=== PATIENT | male | born 1945 | race Caucasian/White ===

== ENCOUNTER 2016-10-03 11:10 | Inpatient (IN) | payer MEDICARE, MEDICAID ==
[~2016-10-03] VITALS: Ht 172.7 cm; Wt 131.8 kg
[~2016-10-03 11:10] MED LIST: ACET-929; AMIODARONE; ATIVAN; CARDIZEM; CYCL5TAB89; ENAL-3 PO; FERR1TAB12; FLUT0.0531; GABA300C8 PO; GLIP-116 PO; IPRAAER5; LORA1TAB12 PO; NITR0.4S31; TIOTCAP; TIZA4TAB9 PO; TRAM50TA2 PO; ZOLP-158; ZOLP10TA6 PO; [UNRECOGNIZED DRUG - CODE] PO; [UNRECOGNIZED DRUG - REMARK]
[2016-10-03 12:20] LABS: Basophils # (auto) 0.1 uL; Basophils % (auto) 1.6 % (0.0-2.0); Eosinophils # (auto) 0.2 uL; Eosinophils % (auto) 1.9 % (0.0-7.0); Hemoglobin 14.6 g/dL (13.5-17.5); Lymphocytes # (auto) 1.9 uL; Lymphocytes % (auto) 21.4 % (10.0-50.0); Mean Corpuscular Hemoglobin 29.4 pg (28.0-32.0); Mean Corpuscular Hgb Conc. 32.6 g/dL (32.0-36.0); Mean Corpuscular Volume 90.3 fL (80.0-100.0); Mean Platelet Volume 9.6 fL (7.4-10.4); Monocytes # (auto) 0.8 uL; Monocytes % (auto) 8.8 % (0.0-12.0); Neutrophils % (auto) 66.3 % (37.0-80.0); Platelet Count (auto) 127 10^3/uL (140-450); Red Cell Distribution Width 13.4 % (11.6-16.0)
[2016-10-03 12:52] LABS: Albumin 3.4 g/dL (3.4-5.0); Bilirubin, Total 0.7 mg/dL (0.2-1.0); Calcium 9.5 mg/dL (8.5-10.1); Magnesium 2.2 mg/dL (1.6-2.6); Potassium 4.7 mmol/L (3.5-5.1)
[2016-10-03] MEDS ORDERED: ACETAMINOPHEN 325 MG TAB PO ONE (13:30)
[2016-10-03 14:27] LABS: Urine Bilirubin Negative (Negative); Urine Blood Negative /uL (Negative); Urine Color Yellow (Yellow); Urine Ketone Negative (Negative); Urine Nitrite Negative (Negative); Urine RBC 1 /hpf (0 - 3)
[2016-10-03 14:30] LABS: B-Type Natriuretic Peptide 23.7 pg/mL (0-100)
[2016-10-03 14:32] LABS: Urine Glucose 4+ mg/dL (Normal)
[2016-10-03 14:41] LABS: Temperature: 21.9 C (20.0-25.0)
[2016-10-03] MEDS ORDERED: cefTRIAXone 1GM/50ML D5W 50 ML IV ONE (15:00)
[2016-10-03] MEDS ORDERED: NITROGLYCERIN 0.4 MG SL TAB SL PRN (16:30)
[2016-10-03] MEDS ORDERED: DEXTROSE (50%) 50ML SYRG IV PRN (16:30)
[2016-10-03] MEDS ORDERED: ALBUTEROL SULF 2.5 MG/0.5ML(0.5%) NEB SOLN NEB PRN (16:30)
[2016-10-03] MEDS ORDERED: LORazepam 0.5 MG TAB PO PRN (16:30)
[2016-10-03] MEDS ORDERED: MORPHINE SULF INJ 2 MG/ML SYRINGE 1ML IV PRN (16:30)
[2016-10-03] MEDS ORDERED: HYDROcodone-ACET 5/325MG TAB PO PRN (16:30)
[2016-10-03] MEDS ORDERED: PROMETHAZINE HCL 25 MG/ML 1ML IV PRN (16:30)
[2016-10-03] MEDS ORDERED: ACETAMINOPHEN 500 MG TAB PO PRN (16:30)
[2016-10-03] MEDS ORDERED: LACTULOSE 20Gm/30ML SOLN PO PRN (16:30)
[2016-10-03] MEDS ORDERED: ENOXAPARIN SOD 40 MG/0.4 ML SYRINGE SC SCH (17:03)
[2016-10-03] MEDS: SODIUM CHLORIDE 0.9% 1,000 ML IV SCH (17:13)
[2016-10-03] MEDS: InsuLIN REG 1unit/0.01ml Soln (100units/ml) SC SCH ×2 (17:15→22:00)
[2016-10-03] MEDS: ACCU-CHEK COMFORT CURVE STRIP VI SCH ×2 (17:16→22:36)
[2016-10-03] MEDS: glipiZIDE 5 MG TAB PO SCH (17:16)
[2016-10-03 17:23] LABS: Temperature: 22.5 C (20.0-25.0)
[2016-10-03] MEDS: IPRATROPIUM BROM 0.5 MG/2.5ML INH SOL NEB SCH (18:00)
[2016-10-03] MEDS: ALBUTEROL SULF 2.5 MG/0.5ML(0.5%) NEB SOLN NEB SCH (18:00)
[2016-10-03 19:55] VITALS: BP 112/68
[2016-10-03 21:28] VITALS: BP 130/71
[2016-10-03 21:33] VITALS: BP 140/82
[2016-10-03] MEDS: GABAPENTIN 300 MG CAP PO SCH (22:25)
[2016-10-03] MEDS: ATORVASTATIN 20 MG TAB PO SCH (22:25)
[2016-10-03] MEDS: APIXABAN 5 MG TAB PO SCH (22:25)
[2016-10-03] MEDS: TEMAZEPAM 15 MG CAP PO PRN (23:21)
[2016-10-04] MEDS: MORPHINE SULF INJ 2 MG/ML SYRINGE 1ML IV PRN ×3 (00:11→20:20)
[2016-10-04] MEDS: SODIUM CHLORIDE 0.9% 1,000 ML IV SCH ×2 (04:34→16:16)
[2016-10-04 05:24] VITALS: BP 145/67
[2016-10-04 06:07] LABS: Cholesterol 105 mg/dL (<200); HDL Cholesterol 25 mg/dL (40-59); LDL Cholesterol 67 mg/dL (<100); Triglycerides 157 mg/dL (<150)
[2016-10-04] MEDS: glipiZIDE 5 MG TAB PO SCH ×2 (06:12→17:43)
[2016-10-04] MEDS: ACCU-CHEK COMFORT CURVE STRIP VI SCH ×4 (06:25→22:00)
[2016-10-04] MEDS: InsuLIN REG 1unit/0.01ml Soln (100units/ml) SC SCH ×4 (06:27→21:38)
[2016-10-04 08:42] VITALS: BP 136/87
[2016-10-04] MEDS ORDERED: cefTRIAXone 1GM/50ML D5W 50 ML IV SCH (09:00)
[2016-10-04] MEDS: ASPirin 81 mg TAB PO SCH (09:37)
[2016-10-04] MEDS: GABAPENTIN 300 MG CAP PO SCH ×2 (09:37→21:29)
[2016-10-04] MEDS: APIXABAN 5 MG TAB PO SCH ×2 (09:37→23:12)
[2016-10-04] MEDS: ENALAPRIL MALEATE 10 MG TAB PO SCH (09:38)
[2016-10-04] MEDS ORDERED: NITROFURANTOIN (MONO) 100 mg CAP PO ONE (10:45)
[2016-10-04] MEDS: IPRATROPIUM BROM 0.5 MG/2.5ML INH SOL NEB SCH ×3 (12:00→19:45)
[2016-10-04] MEDS: ALBUTEROL SULF 2.5 MG/0.5ML(0.5%) NEB SOLN NEB SCH ×3 (12:00→19:45)
[2016-10-04 13:00] VITALS: BP 131/77
[2016-10-04 16:54] VITALS: BP 131/81
[2016-10-04] MEDS: NITROFURANTOIN (MONO) 100 mg CAP PO SCH (21:30)
[2016-10-04] MEDS: ATORVASTATIN 20 MG TAB PO SCH (21:30)
[2016-10-04] MEDS: TEMAZEPAM 15 MG CAP PO PRN (21:42)
[2016-10-04 22:21] VITALS: BP 149/71
[2016-10-05] MEDS: ALBUTEROL SULF 2.5 MG/0.5ML(0.5%) NEB SOLN NEB SCH
[2016-10-05] MEDS: IPRATROPIUM BROM 0.5 MG/2.5ML INH SOL NEB SCH
[2016-10-05 05:12] VITALS: BP 138/67
[2016-10-05] MEDS: glipiZIDE 5 MG TAB PO SCH (06:38)
[2016-10-05] MEDS: ACCU-CHEK COMFORT CURVE STRIP VI SCH ×2 (06:40→11:30)
[2016-10-05] MEDS: InsuLIN REG 1unit/0.01ml Soln (100units/ml) SC SCH ×2 (06:47→11:30)
[2016-10-05] MEDS: SODIUM CHLORIDE 0.9% 1,000 ML IV SCH (06:51)
[2016-10-05 07:49] VITALS: BP 134/67
[2016-10-05] MEDS: APIXABAN 5 MG TAB PO SCH (10:19)
[2016-10-05] MEDS: GABAPENTIN 300 MG CAP PO SCH (10:23)
[2016-10-05] MEDS: ASPirin 81 mg TAB PO SCH (10:23)
[2016-10-05] MEDS: NITROFURANTOIN (MONO) 100 mg CAP PO SCH (10:23)
[2016-10-05] MEDS: ENALAPRIL MALEATE 10 MG TAB PO SCH (10:24)
[2016-10-05 11:57] VITALS: BP 122/70
== END 2016-10-05 17:00 | disposition home or self-care (01) | DRG 637 ==
LOC: EDUNIT# 11:10 → ER 11:15 → TELE 11:16 → TELE-EAST 19:50
PROVIDERS: ADMIT Internal Medicine; ATTEND Internal Medicine
DX: E11.65 Type 2 diabetes mellitus with hyperglycemia (principal); I63.9 Cerebral infarction, unspecified; N39.0 Urinary tract infection, site not specified; I69.351 Hemiplegia and hemiparesis following cerebral infarction affecting right dominant side; E78.5 Hyperlipidemia, unspecified; I48.91 Unspecified atrial fibrillation; J44.9 Chronic obstructive pulmonary disease, unspecified; M19.90 Unspecified osteoarthritis, unspecified site; I25.10 Atherosclerotic heart disease of native coronary artery without angina pectoris; D64.9 Anemia, unspecified; G47.30 Sleep apnea, unspecified; I50.9 Heart failure, unspecified; M54.5 Low back pain; G89.29 Other chronic pain; E66.01 Morbid (severe) obesity due to excess calories; R26.9 Unspecified abnormalities of gait and mobility; B95.2 Enterococcus as the cause of diseases classified elsewhere; Z23 Encounter for immunization; Z80.0 Family history of malignant neoplasm of digestive organs; Z82.49 Family history of ischemic heart disease and other diseases of the circulatory system; Z85.038 Personal history of other malignant neoplasm of large intestine; Z87.891 Personal history of nicotine dependence; Z90.89 Acquired absence of other organs; Z88.1 Allergy status to other antibiotic agents; Z79.82 Long term (current) use of aspirin
CPT/HCPCS: 36415; 70450; 71010; 80053; 80061; 81001; 82550; 82607; 82746; 82962; 83036; 83735; 83880; 84443; 84484; 85025; 85652; 87081; 87086; 87088; 87186; 93005; 93886; 96365; 96372; G0434; J0696; J1815

== ENCOUNTER 2017-12-14 18:52 | Inpatient (IN) | payer MEDICARE, MEDICAID ==
[~2017-12-14] VITALS: Ht 172.7 cm; Wt 140.6 kg
[~2017-12-14 18:52] MED LIST changes: +ACE3T PO; -ACET-929; -AMIODARONE; +APIX5TAB PO; -ATIVAN; +ATOR20TA PO; -CARDIZEM; +FAMO-12 PO; -FERR1TAB12; -FLUT0.0531; +GABA-339 PO; -GABA300C8 PO; -IPRAAER5; +MULT-569 PO; -NITR0.4S31; +PHE100C PO; +SPIR25TA89 PO; -TRAM50TA2 PO; -ZOLP10TA6 PO; -[UNRECOGNIZED DRUG - CODE] PO
[2017-12-14 19:49] LABS: Basophils # (auto) 0 uL; Basophils % (auto) 0.6 % (0.0-2.0); Eosinophils # (auto) 0.2 uL; Eosinophils % (auto) 2.2 % (0.0-7.0); Hematocrit 43.6 % (41.0-53.0); Hemoglobin 14.9 g/dL (13.5-17.5); Lymphocytes # (auto) 1.7 uL; Mean Corpuscular Hemoglobin 30.4 pg (28.0-32.0); Mean Corpuscular Hgb Conc. 34.1 g/dL (32.0-36.0); Mean Corpuscular Volume 88.9 fL (80.0-100.0); Monocytes # (auto) 0.8 uL; Monocytes % (auto) 8.8 % (0.0-12.0); Neutrophils % (auto) 68.4 % (37.0-80.0); Nucleated Red Blood Cells % 0.1 %; Platelet Count (auto) 108 10^3/uL (140-450); Red Blood Cells 4.91 10^6/uL (4.5-5.90); Red Cell Distribution Width 14.5 % (11.8-14.3); White Blood Cell 8.7 10^3/uL (4.4-10.8)
[2017-12-14 20:11] LABS: Albumin 3.5 g/dL (3.4-5.0); BUN/Creatinine Ratio 11.6; Bilirubin, Total 0.4 mg/dL (0.2-1.0); Calcium 8.6 mg/dL (8.5-10.1); Potassium 4.1 mmol/L (3.5-5.1); Total Protein 7.1 g/dL (6.4-8.2)
[2017-12-14 23:45] LABS: INR 1.1 (0.9-1.15); Partial Thromboplastin Time 27.5 sec (22.64-33.71)
[2017-12-15] MEDS ORDERED: HYDROcodone-ACET 10/325MG TAB PO ONE (02:30)
[2017-12-15] MEDS ORDERED: MORPHINE SULFATE 4 MG/ML SYR/VIAL IV ONE (02:45)
[2017-12-15] MEDS ORDERED: ONDANSETRON HCL 4 MG/2 ML VIAL IV ONE (02:45)
[2017-12-15 03:00] LABS: Urine Bacteria FEW /hpf (None Seen); Urine Blood Negative /uL (Negative); Urine Mucus FEW (None Seen); Urine Specific Gravity 1.024 (1.001-1.035); Urine WBC 4 /hpf (0 - 3)
[2017-12-15] MEDS ORDERED: ACETAMINOPHEN 500 MG TAB PO PRN (04:30)
[2017-12-15] MEDS ORDERED: HYDROcodone-ACET 5/325MG TAB PO PRN (04:30)
[2017-12-15] MEDS ORDERED: ONDANSETRON HCL 4 MG/2 ML VIAL IV PRN (04:30)
[2017-12-15] MEDS ORDERED: LORazepam 0.5 MG TAB PO PRN (04:30)
[2017-12-15] MEDS ORDERED: DEXTROSE (50%) 50ML SYRG IV PRN (04:30)
[2017-12-15 05:52] VITALS: BP 134/90
[2017-12-15] MEDS: ACCU-CHEK COMFORT CURVE STRIP VI SCH ×5 (07:09→23:53)
[2017-12-15] MEDS: InsuLIN REG 1unit/0.01ml Soln (100units/ml) SC SCH ×5 (07:10→23:58)
[2017-12-15] MEDS: MORPHINE SULFATE 4 MG/ML SYR/VIAL IV PRN (08:59)
[2017-12-15 09:00] VITALS: BP 119/88
[2017-12-15 09:09] LABS: Basophils # (auto) 0 uL; Basophils % (auto) 0.6 % (0.0-2.0); Eosinophils # (auto) 0.2 uL; Eosinophils % (auto) 2.6 % (0.0-7.0); Hematocrit 42.1 % (41.0-53.0); Lymphocytes # (auto) 1.7 uL; Lymphocytes % (auto) 24.7 % (10.0-50.0); Mean Corpuscular Hemoglobin 29.8 pg (28.0-32.0); Mean Corpuscular Hgb Conc. 33.3 g/dL (32.0-36.0); Mean Corpuscular Volume 89.5 fL (80.0-100.0); Monocytes # (auto) 0.7 uL; Monocytes % (auto) 9.5 % (0.0-12.0); Neutrophils # (auto) 4.4 uL; Neutrophils % (auto) 62.6 % (37.0-80.0); Nucleated Red Blood Cells % 0.2 %; Platelet Count (auto) 94 10^3/uL (140-450); Red Cell Distribution Width 14.2 % (11.8-14.3)
[2017-12-15 09:23] LABS: BUN/Creatinine Ratio 12.5; Calcium 8.4 mg/dL (8.5-10.1); Potassium 4.2 mmol/L (3.5-5.1)
[2017-12-15] MEDS ORDERED: ENOXAPARIN SOD 40 MG/0.4 ML SYRINGE SC SCH (10:00)
[2017-12-15] MEDS: DILTIAZEM HCL 120MG ER CAP PO SCH (10:32)
[2017-12-15] MEDS ORDERED: ALBUTEROL SULF 2.5 MG/0.5ML(0.5%) NEB SOLN NEB PRN (11:45)
[2017-12-15] MEDS ORDERED: PHENYTOIN SODIUM 100 MG CAP PO ONE (12:15)
[2017-12-15] MEDS ORDERED: predniSONE 20 MG TAB PO ONE (12:15)
[2017-12-15] MEDS ORDERED: SPIRONOLACTONE 25 MG TAB PO ONE (12:15)
[2017-12-15] MEDS ORDERED: ENALAPRIL MALEATE 10 MG TAB PO ONE (12:15)
[2017-12-15] MEDS ORDERED: GABAPENTIN 300 MG CAP PO ONE (12:15)
[2017-12-15 13:00] VITALS: BP 146/73
[2017-12-15] MEDS ORDERED: ARTIFICIAL TEAR OPTH(EYE) OINT 3.5GM RIGHTEYE SCH (14:00)
[2017-12-15] MEDS: ARTIFICIAL TEAR OPTH(EYE) OINT 3.5GM RIGHTEYE SCH ×3 (14:55→21:19)
[2017-12-15] MEDS: ACYCLOVIR 400 MG TAB PO SCH ×3 (14:56→21:13)
[2017-12-15 17:06] VITALS: BP 143/73
[2017-12-15] MEDS: GABAPENTIN 300 MG CAP PO SCH (21:13)
[2017-12-15 22:00] VITALS: BP 133/54
[2017-12-15] MEDS ORDERED: ATORVASTATIN 20 MG TAB PO SCH (22:00)
[2017-12-15] MEDS ORDERED: InsuLIN REG 1unit/0.01ml Soln (100units/ml) SC SCH (22:00)
[2017-12-16 01:32] VITALS: BP 133/54
[2017-12-16] MEDS: ARTIFICIAL TEAR OPTH(EYE) OINT 3.5GM RIGHTEYE SCH ×3 (02:07→09:56)
[2017-12-16 05:00] VITALS: BP 130/83
[2017-12-16] MEDS: ACYCLOVIR 400 MG TAB PO SCH ×2 (05:25→09:54)
[2017-12-16] MEDS: ACCU-CHEK COMFORT CURVE STRIP VI SCH ×2 (05:25→12:00)
[2017-12-16] MEDS: InsuLIN REG 1unit/0.01ml Soln (100units/ml) SC SCH ×2 (05:42→12:00)
[2017-12-16 08:38] VITALS: BP 101/65
[2017-12-16] MEDS: MORPHINE SULFATE 4 MG/ML SYR/VIAL IV PRN (08:38)
[2017-12-16] MEDS: GABAPENTIN 300 MG CAP PO SCH (09:55)
[2017-12-16] MEDS: DILTIAZEM HCL 120MG ER CAP PO SCH (09:55)
[2017-12-16] MEDS ORDERED: PHENYTOIN SODIUM 100 MG CAP PO SCH (10:00)
[2017-12-16] MEDS ORDERED: predniSONE 20 MG TAB PO SCH (10:00)
[2017-12-16] MEDS ORDERED: SPIRONOLACTONE 25 MG TAB PO SCH (10:00)
[2017-12-16] MEDS ORDERED: ENALAPRIL MALEATE 10 MG TAB PO SCH (10:00)
== END 2017-12-16 14:20 | disposition home or self-care (01) | DRG 74 ==
LOC: EDBD 18:52 → ER 18:52 → TELE 18:53 → TELE-EAST 12-15 05:53
PROVIDERS: ADMIT Nurse Practitioner Family; ATTEND Family Medicine
DX: G51.0 Bell's palsy (principal); E11.40 Type 2 diabetes mellitus with diabetic neuropathy, unspecified; I11.0 Hypertensive heart disease with heart failure; I48.91 Unspecified atrial fibrillation; I50.9 Heart failure, unspecified; J44.1 Chronic obstructive pulmonary disease with (acute) exacerbation; I69.351 Hemiplegia and hemiparesis following cerebral infarction affecting right dominant side; D64.9 Anemia, unspecified; E78.00 Pure hypercholesterolemia, unspecified; I25.10 Atherosclerotic heart disease of native coronary artery without angina pectoris; F41.9 Anxiety disorder, unspecified; M19.90 Unspecified osteoarthritis, unspecified site; Z79.899 Other long term (current) drug therapy; Z79.01 Long term (current) use of anticoagulants; Z79.4 Long term (current) use of insulin; Z82.49 Family history of ischemic heart disease and other diseases of the circulatory system; Z87.891 Personal history of nicotine dependence; Z88.1 Allergy status to other antibiotic agents
CPT/HCPCS: 36415; 70450; 71045; 80048; 80053; 80061; 81001; 82962; 83036; 83880; 84484; 85025; 85379; 85610; 85730; 87081; 92610; 93005; 93886; 96372; 96374; 96375; J1815; J2405

== ENCOUNTER 2019-09-12 15:58 | Emergency (ER) | payer MEDICARE, MEDICAID ==
[~2019-09-12] VITALS: Ht 172.7 cm; Wt 136.1 kg
[~2019-09-12 15:58] MED LIST changes: -ENAL-3 PO; +ENAL10TA2 PO; -GLIP-116 PO; +GLIP10TA9 PO; +SPIR25TA8 PO; -SPIR25TA89 PO
[2019-09-12 16:09] VITALS: BP 156/97
== END 2019-09-12 18:15 | disposition home or self-care (01) ==
LOC: EDBD 15:58 → ER 16:05
DX: S82.001A Unspecified fracture of right patella, initial encounter for closed fracture (principal); M17.12 Unilateral primary osteoarthritis, left knee; E66.01 Morbid (severe) obesity due to excess calories; J44.9 Chronic obstructive pulmonary disease, unspecified; E11.9 Type 2 diabetes mellitus without complications; K21.9 Gastro-esophageal reflux disease without esophagitis; E78.5 Hyperlipidemia, unspecified; I10 Essential (primary) hypertension; Z87.891 Personal history of nicotine dependence; Z88.1 Allergy status to other antibiotic agents; Z79.899 Other long term (current) drug therapy; Z68.42 Body mass index [BMI] 45.0-49.9, adult; Z99.3 Dependence on wheelchair; W07.XXXA Fall from chair, initial encounter; Y93.89 Activity, other specified; Y92.89 Other specified places as the place of occurrence of the external cause; Y99.8 Other external cause status
CPT/HCPCS: 29505; 73562

== ENCOUNTER 2020-12-07 14:11 | Inpatient (IN) | payer MEDICARE, MEDICAID ==
[~2020-12-07] VITALS: Ht 172.7 cm; Wt 112.3 kg
[~2020-12-07 14:11] MED LIST changes: +ENAL10TA13 PO; -ENAL10TA2 PO; -LORA1TAB12 PO; +LORA1TAB23 PO; -MULT-569 PO; +MULT1TAB28 PO; -ZOLP-158; +ZOLP5TAB
[2020-12-07 15:02] LABS: Basophils # (auto) 0 10 ^3/uL (0-0.2); Basophils % (auto) 0.6 % (0.0-2.0); Eosinophils # (auto) 0.1 10 ^3/uL (0-0.8); Eosinophils % (auto) 1.9 % (0.0-7.0); Hematocrit 40.9 % (41.0-53.0); Hemoglobin 13.8 g/dL (13.5-17.5); Lymphocytes # (auto) 1.9 10 ^3/uL (0.4-5.4); Lymphocytes % (auto) 27.7 % (10.0-50.0); Mean Corpuscular Hgb Conc. 33.8 g/dL (32.0-36.0); Mean Corpuscular Volume 88.7 fL (80.0-100.0); Monocytes # (auto) 0.5 10 ^3/uL (0-1.3); Neutrophils # (auto) 4.1 10 ^3/uL (1.6-8.6); Neutrophils % (auto) 61.8 % (37.0-80.0); Nucleated Red Blood Cells % 0.1 %; Platelet Count (auto) 101 10^3/uL (140-450); Red Blood Cells 4.61 10^6/uL (4.5-5.90); Red Cell Distribution Width 14.3 % (11.8-14.3); White Blood Cell 6.7 10^3/uL (4.4-10.8)
[2020-12-07 15:10] LABS: INR 1.21 (0.9-1.15)
[2020-12-07 15:11] LABS: Albumin 3.2 g/dL (3.4-5.0); BUN/Creatinine Ratio 10.9; Calcium 8.5 mg/dL (8.5-10.1); Magnesium 2.1 mg/dL (1.6-2.6); Potassium 3.9 mmol/L (3.5-5.1)
[2020-12-07 15:16] LABS: Bilirubin, Total 0.8 mg/dL (0.2-1.0); Total Protein 6.8 g/dL (6.4-8.2)
[2020-12-07] MEDS ORDERED: methylPREDNISolone SOD SUCC 125 MG/2 ML VL IV ONE (15:45)
[2020-12-07] MEDS ORDERED: AZITHROMYCIN 500MG/ 250ML 250 ML IV ONE (15:45)
[2020-12-07] MEDS ORDERED: IPRATROPIUM BROM 0.5 MG/2.5ML INH SOL HHN ONE (15:45)
[2020-12-07] MEDS ORDERED: ALBUTEROL SULF 2.5 MG/0.5ML(0.5%) NEB SOLN HHN ONE (15:45)
[2020-12-07] MEDS ORDERED: ONDANSETRON HCL 4 MG/2 ML VIAL IV PRN (18:45)
[2020-12-07] MEDS ORDERED: ACETAMINOPHEN 500 MG TAB PO PRN (18:45)
[2020-12-07] MEDS ORDERED: MORPHINE SULF INJ 2 MG/ML SYRINGE 1ML IV PRN ×2 (18:45)
[2020-12-07] MEDS ORDERED: NITROGLYCERIN 0.4 MG SL TAB SL PRN (18:45)
[2020-12-07 18:59] LABS: Urine Bacteria MANY /hpf (None Seen); Urine Blood 1+ /uL (Negative); Urine Mucus FEW (None Seen); Urine Specific Gravity 1.019 (1.001-1.035); Urine WBC 242 /hpf (0 - 3); Urine WBC Clumps PRESENT /hpf (None Seen)
[2020-12-07] MEDS ORDERED: FUROSEMIDE 20 MG/2 ML VIAL IV ONE (19:00)
[2020-12-07] MEDS ORDERED: DEXTROSE (50%) 50ML SYRG IV PRN (19:00)
[2020-12-07 19:02] VITALS: BP 159/73
[2020-12-07] MEDS: DOXYCYCLINE 100MG/250ML 250 ML IV SCH (19:59)
[2020-12-07] MEDS: APIXABAN 5 MG TAB PO SCH (21:23)
[2020-12-07] MEDS: GABAPENTIN 400 MG CAP PO SCH (21:23)
[2020-12-07] MEDS: ACCU-CHEK COMFORT CURVE STRIP VI SCH (21:24)
[2020-12-07 21:30] VITALS: BP 143/86
[2020-12-07] MEDS: InsuLIN REG 1unit/0.01ml Soln (100units/ml) SC SCH (21:31)
[2020-12-07] MEDS: HYDROcodone-ACET 5/325MG TAB PO PRN (21:50)
[2020-12-07 22:00] VITALS: BP 143/86
[2020-12-08] VITALS (9 sets, daily range): BP systolic 110–152; BP diastolic 63–97
[2020-12-08] MEDS ORDERED: INFLUENZA QUAD 2020-2021 0.5 ML SYRG IM ONE (02:00)
[2020-12-08] MEDS ORDERED: PNEUMOCOCCAL VACC POLYS 25 MCG/0.5 ML VIAL IM ONE (02:00)
[2020-12-08] MEDS: InsuLIN REG 1unit/0.01ml Soln (100units/ml) SC SCH ×4 (06:36→21:39)
[2020-12-08] MEDS: DOXYCYCLINE 100MG/250ML 250 ML IV SCH ×2 (06:38→17:59)
[2020-12-08] MEDS: IPRATROPIUM BROM 0.5 MG/2.5ML INH SOL NEB SCH ×3 (07:32→18:34)
[2020-12-08] MEDS: ALBUTEROL SULF 2.5 MG/0.5ML(0.5%) NEB SOLN NEB SCH ×3 (07:33→18:34)
[2020-12-08 08:21] LABS: Basophils # (auto) 0 10 ^3/uL (0-0.2); Basophils % (auto) 0.2 % (0.0-2.0); Eosinophils # (auto) 0 10 ^3/uL (0-0.8); Hematocrit 41.1 % (41.0-53.0); Hemoglobin 14.4 g/dL (13.5-17.5); Lymphocytes # (auto) 0.8 10 ^3/uL (0.4-5.4); Lymphocytes % (auto) 8.2 % (10.0-50.0); Mean Corpuscular Hemoglobin 30.8 pg (28.0-32.0); Mean Corpuscular Volume 87.8 fL (80.0-100.0); Monocytes # (auto) 0.2 10 ^3/uL (0-1.3); Monocytes % (auto) 2.4 % (0.0-12.0); Neutrophils # (auto) 8.7 10 ^3/uL (1.6-8.6); Neutrophils % (auto) 89.2 % (37.0-80.0); Nucleated Red Blood Cells % 0.1 %; Platelet Count (auto) 101 10^3/uL (140-450); Red Blood Cells 4.68 10^6/uL (4.5-5.90); Red Cell Distribution Width 14.2 % (11.8-14.3); White Blood Cell 9.8 10^3/uL (4.4-10.8)
[2020-12-08 08:37] LABS: BUN/Creatinine Ratio 15.3; Calcium 8.8 mg/dL (8.5-10.1); Potassium 3.9 mmol/L (3.5-5.1)
[2020-12-08] MEDS: ATORVASTATIN 20 MG TAB PO SCH (09:02)
[2020-12-08] MEDS: dilTIAZem HCL 180MG ER CAP PO SCH (09:05)
[2020-12-08] MEDS: HYDROcodone-ACET 5/325MG TAB PO PRN ×2 (09:06→22:39)
[2020-12-08] MEDS: FUROSEMIDE 20 MG/2 ML VIAL IV SCH (09:07)
[2020-12-08] MEDS: GABAPENTIN 400 MG CAP PO SCH ×2 (09:08→21:37)
[2020-12-08] MEDS: FAMOTIDINE 20 MG TAB PO SCH (09:08)
[2020-12-08] MEDS: APIXABAN 5 MG TAB PO SCH ×2 (09:08→21:37)
[2020-12-08] MEDS: ENALAPRIL MALEATE 10 MG TAB PO SCH (09:09)
[2020-12-08] MEDS: ACCU-CHEK COMFORT CURVE STRIP VI SCH ×4 (09:12→21:39)
[2020-12-08] MEDS ORDERED: FAMOTIDINE 20 MG TAB PO SCH (10:00)
[2020-12-08] MEDS: methylPREDNISolone SOD SUCC 40 MG/ML VL IV SCH ×2 (12:28→21:36)
[2020-12-08] MEDS ORDERED: GABA800T97 PO (18:28)
[2020-12-08] MEDS ORDERED: TIOTCAP IN (18:29)
[2020-12-08] MEDS ORDERED: DILT120T3 PO (18:39)
[2020-12-08] MEDS ORDERED: METH750T3 PO (18:39)
[2020-12-08] MEDS ORDERED: HYDR-4798 PO (18:39)
[2020-12-08] MEDS ORDERED: OMEP-260 PO (18:39)
[2020-12-08] MEDS ORDERED: BUSP7.5T8 PO (18:39)
[2020-12-08] MEDS ORDERED: INSU1INJ26 SC (18:51)
[2020-12-08] MEDS ORDERED: FLUT1SPR5 (18:51)
[2020-12-08] MEDS ORDERED: ALBU0.084 NEB (18:53)
[2020-12-08] MEDS ORDERED: ALBUAER3 IN (18:53)
[2020-12-08] MEDS ORDERED: SITA100T7 PO (18:54)
[2020-12-08] MEDS ORDERED: METOPROLOL TARTRATE 1MG/1ML-5ML VIAL IV ONE (19:00)
[2020-12-08] MEDS ORDERED: cefTRIAXone 1GM/50ML D5W 50 ML IV ONE (20:45)
[2020-12-08] MEDS: INSULIN LANTUS (GLARGINE) 1 /0.01ml (100units/ml) SC SCH (21:38)
[2020-12-08] MEDS: BUDESONIDE (INHALATION) 0.5 MG/2 ML NEB NEB SCH (22:34)
[2020-12-09] MEDS: ALBUTEROL SULF 2.5 MG/0.5ML(0.5%) NEB SOLN NEB SCH ×4 (01:36→18:39)
[2020-12-09] MEDS: IPRATROPIUM BROM 0.5 MG/2.5ML INH SOL NEB SCH ×4 (01:36→18:39)
[2020-12-09 04:59] VITALS: BP 144/88
[2020-12-09] MEDS: BUDESONIDE (INHALATION) 0.5 MG/2 ML NEB NEB SCH ×2 (06:15→22:15)
[2020-12-09] MEDS: ACCU-CHEK COMFORT CURVE STRIP VI SCH ×3 (06:18→17:33)
[2020-12-09] MEDS: DOXYCYCLINE 100MG/250ML 250 ML IV SCH ×2 (06:18→18:22)
[2020-12-09] MEDS: InsuLIN REG 1unit/0.01ml Soln (100units/ml) SC SCH ×3 (06:19→17:34)
[2020-12-09 09:00] VITALS: BP 141/81
[2020-12-09] MEDS ORDERED: cefTRIAXone 1GM/50ML D5W 50 ML IV SCH (09:00)
[2020-12-09] MEDS ORDERED: DEXTROSE (50%) 50ML SYRG IV PRN (09:30)
[2020-12-09] MEDS: ATORVASTATIN 20 MG TAB PO SCH (09:32)
[2020-12-09] MEDS: GABAPENTIN 400 MG CAP PO SCH ×2 (09:32→21:27)
[2020-12-09] MEDS: APIXABAN 5 MG TAB PO SCH ×2 (09:32→21:27)
[2020-12-09] MEDS: FAMOTIDINE 20 MG TAB PO SCH (09:32)
[2020-12-09] MEDS: ENALAPRIL MALEATE 10 MG TAB PO SCH (09:33)
[2020-12-09] MEDS: dilTIAZem HCL 180MG ER CAP PO SCH (09:34)
[2020-12-09] MEDS: methylPREDNISolone SOD SUCC 40 MG/ML VL IV SCH (09:34)
[2020-12-09] MEDS: FUROSEMIDE 20 MG/2 ML VIAL IV SCH (09:35)
[2020-12-09] MEDS: INSULIN LANTUS (GLARGINE) 1 /0.01ml (100units/ml) SC SCH ×2 (09:36→21:28)
[2020-12-09] MEDS: HYDROcodone-ACET 5/325MG TAB PO PRN ×2 (09:56→16:43)
[2020-12-09] MEDS ORDERED: predniSONE 20 MG TAB PO ONE (10:00)
[2020-12-09 12:49] VITALS: BP 131/73
[2020-12-09] MEDS: MEROPENEM 1GM IVPB 100 ML IV SCH ×2 (16:15→21:27)
[2020-12-09 17:00] VITALS: BP 121/61
[2020-12-09 20:00] VITALS: BP 156/89
[2020-12-09 21:59] VITALS: BP 107/59
[2020-12-10] MEDS: InsuLIN REG 1unit/0.01ml Soln (100units/ml) SC SCH ×4 (00:33→17:41)
[2020-12-10] MEDS: ACCU-CHEK COMFORT CURVE STRIP VI SCH ×4 (00:34→17:34)
[2020-12-10] MEDS: HYDROcodone-ACET 5/325MG TAB PO PRN ×2 (00:35→22:06)
[2020-12-10 04:59] VITALS: BP 138/74
[2020-12-10] MEDS: IPRATROPIUM BROM 0.5 MG/2.5ML INH SOL NEB SCH ×3 (05:47→18:56)
[2020-12-10] MEDS: ALBUTEROL SULF 2.5 MG/0.5ML(0.5%) NEB SOLN NEB SCH ×3 (05:48→18:56)
[2020-12-10] MEDS: BUDESONIDE (INHALATION) 0.5 MG/2 ML NEB NEB SCH ×2 (05:48→18:56)
[2020-12-10] MEDS: MEROPENEM 1GM IVPB 100 ML IV SCH ×3 (06:09→22:59)
[2020-12-10 09:00] VITALS: BP 151/82
[2020-12-10] MEDS: DOXYCYCLINE 100MG/250ML 250 ML IV SCH ×2 (09:34→22:03)
[2020-12-10] MEDS: predniSONE 20 MG TAB PO SCH (09:34)
[2020-12-10] MEDS: FUROSEMIDE 20 MG/2 ML VIAL IV SCH (09:34)
[2020-12-10] MEDS: GABAPENTIN 400 MG CAP PO SCH ×2 (09:35→22:05)
[2020-12-10] MEDS: FAMOTIDINE 20 MG TAB PO SCH (09:35)
[2020-12-10] MEDS: ATORVASTATIN 20 MG TAB PO SCH (09:35)
[2020-12-10] MEDS: dilTIAZem HCL 180MG ER CAP PO SCH (09:35)
[2020-12-10] MEDS: APIXABAN 5 MG TAB PO SCH ×2 (09:35→22:06)
[2020-12-10] MEDS: ENALAPRIL MALEATE 10 MG TAB PO SCH (09:36)
[2020-12-10] MEDS: INSULIN LANTUS (GLARGINE) 1 /0.01ml (100units/ml) SC SCH ×2 (09:47→22:16)
[2020-12-10 13:00] VITALS: BP 142/77
[2020-12-10 17:00] VITALS: BP 107/67
[2020-12-10 19:34] VITALS: BP 107/67
[2020-12-10 21:47] VITALS: BP 118/68
[2020-12-11] MEDS: InsuLIN REG 1unit/0.01ml Soln (100units/ml) SC SCH ×5 (00:07→23:47)
[2020-12-11] MEDS: ACCU-CHEK COMFORT CURVE STRIP VI SCH ×5 (00:07→23:47)
[2020-12-11 04:52] VITALS: BP 103/58
[2020-12-11] MEDS: MEROPENEM 1GM IVPB 100 ML IV SCH ×3 (05:29→21:49)
[2020-12-11] MEDS: IPRATROPIUM BROM 0.5 MG/2.5ML INH SOL NEB SCH ×4 (06:00→18:58)
[2020-12-11] MEDS: ALBUTEROL SULF 2.5 MG/0.5ML(0.5%) NEB SOLN NEB SCH ×4 (06:00→18:59)
[2020-12-11] MEDS: BUDESONIDE (INHALATION) 0.5 MG/2 ML NEB NEB SCH ×2 (06:36→18:59)
[2020-12-11 06:44] LABS: Basophils # (auto) 0 10 ^3/uL (0-0.2); Basophils % (auto) 0.3 % (0.0-2.0); Eosinophils # (auto) 0 10 ^3/uL (0-0.8); Hematocrit 43.8 % (41.0-53.0); Hemoglobin 14.9 g/dL (13.5-17.5); Lymphocytes # (auto) 1.8 10 ^3/uL (0.4-5.4); Lymphocytes % (auto) 13.6 % (10.0-50.0); Mean Corpuscular Hemoglobin 30.2 pg (28.0-32.0); Mean Corpuscular Volume 88.8 fL (80.0-100.0); Monocytes # (auto) 1.1 10 ^3/uL (0-1.3); Monocytes % (auto) 8.6 % (0.0-12.0); Neutrophils # (auto) 10.3 10 ^3/uL (1.6-8.6); Neutrophils % (auto) 77.5 % (37.0-80.0); Platelet Count (auto) 118 10^3/uL (140-450); Red Blood Cells 4.93 10^6/uL (4.5-5.90); Red Cell Distribution Width 14.6 % (11.8-14.3); White Blood Cell 13.3 10^3/uL (4.4-10.8)
[2020-12-11 07:55] LABS: BUN/Creatinine Ratio 29.9; Calcium 8.6 mg/dL (8.5-10.1); Potassium 3.8 mmol/L (3.5-5.1)
[2020-12-11 07:57] LABS: Bilirubin, Total 0.7 mg/dL (0.2-1.0); Total Protein 6.3 g/dL (6.4-8.2)
[2020-12-11 09:00] VITALS: BP 141/78
[2020-12-11] MEDS: ATORVASTATIN 20 MG TAB PO SCH (09:19)
[2020-12-11] MEDS: predniSONE 20 MG TAB PO SCH (09:20)
[2020-12-11] MEDS: FAMOTIDINE 20 MG TAB PO SCH (09:20)
[2020-12-11] MEDS: ENALAPRIL MALEATE 10 MG TAB PO SCH (09:21)
[2020-12-11] MEDS: DOXYCYCLINE 100MG/250ML 250 ML IV SCH (09:24)
[2020-12-11] MEDS: FUROSEMIDE 20 MG/2 ML VIAL IV SCH (09:24)
[2020-12-11] MEDS: GABAPENTIN 400 MG CAP PO SCH ×2 (09:25→21:38)
[2020-12-11] MEDS: APIXABAN 5 MG TAB PO SCH (09:25)
[2020-12-11] MEDS: INSULIN LANTUS (GLARGINE) 1 /0.01ml (100units/ml) SC SCH ×2 (09:27→21:40)
[2020-12-11] MEDS: dilTIAZem HCL 180MG ER CAP PO SCH (10:15)
[2020-12-11] MEDS ORDERED: METOPROLOL TARTRATE 25 MG TAB PO ONE (12:15)
[2020-12-11] MEDS ORDERED: ASPirin-EC 81 mg tab PO ONE (12:15)
[2020-12-11] MEDS ORDERED: NITROGLYCERIN 0.2MG/HR TOPICAL PATCH TD ONE (12:30)
[2020-12-11 13:00] VITALS: BP 113/72
[2020-12-11 14:13] LABS: Magnesium 2.4 mg/dL (1.6-2.6)
[2020-12-11] MEDS ORDERED: LORazepam 0.5 MG TAB PO ONE (14:30)
[2020-12-11 16:59] VITALS: BP 98/58
[2020-12-11 21:28] VITALS: BP 99/57
[2020-12-11] MEDS: HYDROcodone-ACET 5/325MG TAB PO PRN (21:39)
[2020-12-11] MEDS: METOPROLOL TARTRATE 25 MG TAB PO SCH (21:39)
[2020-12-11 23:16] LABS: Urine Bacteria NONE SEEN /hpf (None Seen); Urine Blood Negative /uL (Negative); Urine Specific Gravity 1.015 (1.001-1.035); Urine WBC 8 /hpf (0 - 3)
[2020-12-12 00:40] LABS: INR 1.24 (0.9-1.15)
[2020-12-12 04:57] VITALS: BP 105/60
[2020-12-12] MEDS: ACCU-CHEK COMFORT CURVE STRIP VI SCH ×3 (05:23→17:18)
[2020-12-12] MEDS: InsuLIN REG 1unit/0.01ml Soln (100units/ml) SC SCH ×3 (05:23→17:19)
[2020-12-12] MEDS: MEROPENEM 1GM IVPB 100 ML IV SCH ×3 (05:25→21:43)
[2020-12-12] MEDS: ALBUTEROL SULF 2.5 MG/0.5ML(0.5%) NEB SOLN NEB SCH ×3 (05:51→19:04)
[2020-12-12] MEDS: IPRATROPIUM BROM 0.5 MG/2.5ML INH SOL NEB SCH ×3 (05:51→19:04)
[2020-12-12] MEDS: BUDESONIDE (INHALATION) 0.5 MG/2 ML NEB NEB SCH ×2 (05:52→19:04)
[2020-12-12 06:02] LABS: Basophils # (auto) 0 10 ^3/uL (0-0.2); Basophils % (auto) 0.1 % (0.0-2.0); Eosinophils # (auto) 0.1 10 ^3/uL (0-0.8); Eosinophils % (auto) 0.6 % (0.0-7.0); Hemoglobin 14.5 g/dL (13.5-17.5); Lymphocytes # (auto) 2.2 10 ^3/uL (0.4-5.4); Lymphocytes % (auto) 19.1 % (10.0-50.0); Mean Corpuscular Hemoglobin 30.7 pg (28.0-32.0); Mean Corpuscular Hgb Conc. 34.5 g/dL (32.0-36.0); Monocytes # (auto) 0.9 10 ^3/uL (0-1.3); Monocytes % (auto) 8.3 % (0.0-12.0); Neutrophils # (auto) 8.2 10 ^3/uL (1.6-8.6); Neutrophils % (auto) 71.9 % (37.0-80.0); Nucleated Red Blood Cells % 0.4 %; Platelet Count (auto) 118 10^3/uL (140-450); Red Blood Cells 4.72 10^6/uL (4.5-5.90); Red Cell Distribution Width 14.2 % (11.8-14.3); White Blood Cell 11.4 10^3/uL (4.4-10.8)
[2020-12-12 06:12] LABS: INR 1.24 (0.9-1.15)
[2020-12-12 06:26] LABS: Calcium 8.8 mg/dL (8.5-10.1); Potassium 3.9 mmol/L (3.5-5.1)
[2020-12-12 06:31] LABS: BUN/Creatinine Ratio 33.3
[2020-12-12 08:38] VITALS: BP 110/74
[2020-12-12] MEDS: dilTIAZem HCL 180MG ER CAP PO SCH (08:41)
[2020-12-12] MEDS: ASPirin-EC 81 mg tab PO SCH (08:41)
[2020-12-12] MEDS: METOPROLOL TARTRATE 25 MG TAB PO SCH (08:42)
[2020-12-12] MEDS: ENALAPRIL MALEATE 10 MG TAB PO SCH (08:42)
[2020-12-12 09:00] VITALS: BP 130/80
[2020-12-12] MEDS ORDERED: IOHEXOL 350 MG/ML 100ML IJ ONE ×2 (09:31→11:25)
[2020-12-12] MEDS ORDERED: LIDOCAINE 2%HCL (LOCAL ANESTH.) INJ 20ML MDV ONE (09:31)
[2020-12-12] MEDS: INSULIN LANTUS (GLARGINE) 1 /0.01ml (100units/ml) SC SCH ×2 (10:00→21:46)
[2020-12-12] MEDS: NITROGLYCERIN 0.2MG/HR TOPICAL PATCH TD SCH (10:00)
[2020-12-12] MEDS ORDERED: MIDAZOLAM HCL 1MG/1ML-2 ML VIAL ONE (11:02)
[2020-12-12] MEDS ORDERED: fentaNYL CITRATE 100 MCG/2 ML VL ONE (11:02)
[2020-12-12] MEDS ORDERED: VERAPAMIL 2.5MG/ML INJ 2ML VIAL IV ONE (11:02)
[2020-12-12] MEDS ORDERED: SODIUM CHL 0.9% 50 ML ONE (11:02)
[2020-12-12] MEDS ORDERED: ANGIOMAX 250 MG VIAL IV ONE (11:02)
[2020-12-12] MEDS ORDERED: HEPARIN SODIUM (PORCINE) 5000 UNITS/ML 1ML VIAL ONE (11:07)
[2020-12-12] MEDS ORDERED: CLOPIDOGREL 300 MG TAB ONE (12:08)
[2020-12-12] MEDS ORDERED: HYDROmorphone HCL 2 MG/ML VL ONE (12:20)
[2020-12-12] MEDS ORDERED: ONDANSETRON HCL 4 MG/2 ML VIAL ONE (12:22)
[2020-12-12] MEDS: FUROSEMIDE 20 MG/2 ML VIAL IV SCH (14:18)
[2020-12-12] MEDS: ATORVASTATIN 20 MG TAB PO SCH (14:20)
[2020-12-12] MEDS: FAMOTIDINE 20 MG TAB PO SCH (14:23)
[2020-12-12] MEDS: predniSONE 20 MG TAB PO SCH (14:23)
[2020-12-12 17:00] VITALS: BP 97/43
[2020-12-12] MEDS: GABAPENTIN 300 MG CAP PO SCH (21:44)
[2020-12-12] MEDS: HYDROcodone-ACET 5/325MG TAB PO PRN (21:58)
[2020-12-12 22:00] VITALS: BP 121/71
[2020-12-13] MEDS: ACCU-CHEK COMFORT CURVE STRIP VI SCH ×5 (00:11→23:25)
[2020-12-13] MEDS: InsuLIN REG 1unit/0.01ml Soln (100units/ml) SC SCH ×5 (00:12→23:26)
[2020-12-13 05:00] VITALS: BP 102/56
[2020-12-13] MEDS: MEROPENEM 1GM IVPB 100 ML IV SCH (05:51)
[2020-12-13 06:22] LABS: Basophils # (auto) 0 10 ^3/uL (0-0.2); Basophils % (auto) 0.3 % (0.0-2.0); Eosinophils # (auto) 0 10 ^3/uL (0-0.8); Eosinophils % (auto) 0.1 % (0.0-7.0); Hematocrit 41.6 % (41.0-53.0); Hemoglobin 14.4 g/dL (13.5-17.5); Lymphocytes # (auto) 1.7 10 ^3/uL (0.4-5.4); Lymphocytes % (auto) 12.7 % (10.0-50.0); Mean Corpuscular Hemoglobin 30.6 pg (28.0-32.0); Mean Corpuscular Hgb Conc. 34.6 g/dL (32.0-36.0); Mean Corpuscular Volume 88.6 fL (80.0-100.0); Monocytes % (auto) 7.4 % (0.0-12.0); Neutrophils # (auto) 10.4 10 ^3/uL (1.6-8.6); Neutrophils % (auto) 79.5 % (37.0-80.0); Nucleated Red Blood Cells % 0.3 %; Platelet Count (auto) 111 10^3/uL (140-450); Red Blood Cells 4.69 10^6/uL (4.5-5.90); Red Cell Distribution Width 14.6 % (11.8-14.3); White Blood Cell 13.1 10^3/uL (4.4-10.8)
[2020-12-13 06:37] LABS: Calcium 8.6 mg/dL (8.5-10.1); Magnesium 2.4 mg/dL (1.6-2.6); Potassium 4.6 mmol/L (3.5-5.1)
[2020-12-13 06:40] LABS: BUN/Creatinine Ratio 32.2
[2020-12-13] MEDS: IPRATROPIUM BROM 0.5 MG/2.5ML INH SOL NEB SCH ×3 (06:54→19:29)
[2020-12-13] MEDS: ALBUTEROL SULF 2.5 MG/0.5ML(0.5%) NEB SOLN NEB SCH ×3 (06:54→19:29)
[2020-12-13] MEDS: BUDESONIDE (INHALATION) 0.5 MG/2 ML NEB NEB SCH ×2 (06:54→23:04)
[2020-12-13 09:00] VITALS: BP 116/69
[2020-12-13] MEDS: ENALAPRIL MALEATE 10 MG TAB PO SCH (09:19)
[2020-12-13] MEDS: GABAPENTIN 300 MG CAP PO SCH ×2 (09:20→21:59)
[2020-12-13] MEDS: ASPirin-EC 81 mg tab PO SCH (09:20)
[2020-12-13] MEDS: ATORVASTATIN 20 MG TAB PO SCH (09:20)
[2020-12-13] MEDS: NITROGLYCERIN 0.2MG/HR TOPICAL PATCH TD SCH (09:21)
[2020-12-13] MEDS: FAMOTIDINE 20 MG TAB PO SCH (09:21)
[2020-12-13] MEDS: FUROSEMIDE 20 MG/2 ML VIAL IV SCH (09:21)
[2020-12-13] MEDS: predniSONE 20 MG TAB PO SCH (09:24)
[2020-12-13] MEDS: INSULIN LANTUS (GLARGINE) 1 /0.01ml (100units/ml) SC SCH ×2 (11:27→22:00)
[2020-12-13] MEDS ORDERED: CLOPIDOGREL BISULFATE 75 MG TAB PO ONE (12:15)
[2020-12-13] MEDS ORDERED: cefTRIAXone 1GM/50ML D5W 50 ML IV ONE (12:15)
[2020-12-13 13:00] VITALS: BP 123/72
[2020-12-13 17:00] VITALS: BP 126/62
[2020-12-13] MEDS ORDERED: APIXABAN 5 MG TAB PO SCH (22:00)
[2020-12-13] MEDS: HYDROcodone-ACET 5/325MG TAB PO PRN (22:04)
[2020-12-13 22:07] VITALS: BP 121/75
[2020-12-14 01:56] VITALS: BP 121/75
[2020-12-14 05:22] VITALS: BP 109/60
[2020-12-14] MEDS: InsuLIN REG 1unit/0.01ml Soln (100units/ml) SC SCH ×3 (05:39→18:11)
[2020-12-14] MEDS: ACCU-CHEK COMFORT CURVE STRIP VI SCH ×4 (05:39→22:05)
[2020-12-14] MEDS: ALBUTEROL SULF 2.5 MG/0.5ML(0.5%) NEB SOLN NEB SCH ×3 (05:58→19:18)
[2020-12-14] MEDS: BUDESONIDE (INHALATION) 0.5 MG/2 ML NEB NEB SCH ×2 (05:58→22:52)
[2020-12-14] MEDS: IPRATROPIUM BROM 0.5 MG/2.5ML INH SOL NEB SCH ×3 (05:58→19:18)
[2020-12-14 07:19] LABS: Basophils # (auto) 0 10 ^3/uL (0-0.2); Basophils % (auto) 0.1 % (0.0-2.0); Eosinophils # (auto) 0.1 10 ^3/uL (0-0.8); Eosinophils % (auto) 0.7 % (0.0-7.0); Hematocrit 41.6 % (41.0-53.0); Hemoglobin 14.5 g/dL (13.5-17.5); Lymphocytes # (auto) 2.6 10 ^3/uL (0.4-5.4); Lymphocytes % (auto) 20.1 % (10.0-50.0); Mean Corpuscular Hemoglobin 30.7 pg (28.0-32.0); Mean Corpuscular Hgb Conc. 34.9 g/dL (32.0-36.0); Mean Corpuscular Volume 87.9 fL (80.0-100.0); Monocytes # (auto) 1.1 10 ^3/uL (0-1.3); Monocytes % (auto) 8.1 % (0.0-12.0); Neutrophils # (auto) 9.3 10 ^3/uL (1.6-8.6); Nucleated Red Blood Cells % 0.2 %; Platelet Count (auto) 118 10^3/uL (140-450); Red Blood Cells 4.73 10^6/uL (4.5-5.90); Red Cell Distribution Width 14.3 % (11.8-14.3); White Blood Cell 13.1 10^3/uL (4.4-10.8)
[2020-12-14 07:33] LABS: BUN/Creatinine Ratio 34.6; Calcium 9.2 mg/dL (8.5-10.1); Potassium 3.9 mmol/L (3.5-5.1)
[2020-12-14 08:00] VITALS: BP 144/79
[2020-12-14] MEDS: cefTRIAXone 1GM/50ML D5W 50 ML IV SCH (08:03)
[2020-12-14 08:56] VITALS: BP 144/79
[2020-12-14] MEDS ORDERED: VANCOMYCIN 1GM/250ML 250 ML IV ONE ×2 (09:45→09:52)
[2020-12-14] MEDS ORDERED: FAMOTIDINE 20 MG TAB PO SCH (10:00)
[2020-12-14] MEDS ORDERED: fentaNYL CITRATE 100 MCG/2 ML VL ONE (12:05)
[2020-12-14] MEDS ORDERED: LIDOCAINE 2%HCL (LOCAL ANESTH.) INJ 20ML MDV ONE (12:05)
[2020-12-14] MEDS ORDERED: MIDAZOLAM HCL 1MG/1ML-2 ML VIAL ONE (12:05)
[2020-12-14] MEDS ORDERED: VANCOMYCIN HCL 1000 MG VL ONE (12:08)
[2020-12-14] MEDS: FUROSEMIDE 20 MG/2 ML VIAL IV SCH (15:16)
[2020-12-14] MEDS: ASPirin-EC 81 mg tab PO SCH (15:17)
[2020-12-14] MEDS: predniSONE 20 MG TAB PO SCH (15:17)
[2020-12-14] MEDS: ATORVASTATIN 20 MG TAB PO SCH (15:18)
[2020-12-14] MEDS: CLOPIDOGREL BISULFATE 75 MG TAB PO SCH (15:18)
[2020-12-14] MEDS: GABAPENTIN 300 MG CAP PO SCH ×2 (15:18→22:05)
[2020-12-14] MEDS: FAMOTIDINE 20 MG TAB PO SCH (15:18)
[2020-12-14] MEDS: ENALAPRIL MALEATE 10 MG TAB PO SCH (15:19)
[2020-12-14] MEDS: INSULIN LANTUS (GLARGINE) 1 /0.01ml (100units/ml) SC SCH ×2 (15:32→22:10)
[2020-12-14] MEDS: HYDROcodone-ACET 5/325MG TAB PO PRN (15:34)
[2020-12-14 17:03] VITALS: BP 137/77
[2020-12-14 22:00] VITALS: BP 135/72
[2020-12-14] MEDS: METOPROLOL TARTRATE 25 MG TAB PO SCH (22:04)
[2020-12-14] MEDS: AMIODARONE HCL 200 MG TAB PO SCH (22:05)
[2020-12-14] MEDS ORDERED: TEMAZEPAM 15 MG CAP PO ONE (22:15)
[2020-12-15] MEDS: ACCU-CHEK COMFORT CURVE STRIP VI SCH ×4 (00:08→23:48)
[2020-12-15] MEDS: InsuLIN REG 1unit/0.01ml Soln (100units/ml) SC SCH ×5 (00:09→23:49)
[2020-12-15 05:00] VITALS: BP 114/81
[2020-12-15] MEDS: BUDESONIDE (INHALATION) 0.5 MG/2 ML NEB NEB SCH ×2 (05:54→22:40)
[2020-12-15] MEDS: IPRATROPIUM BROM 0.5 MG/2.5ML INH SOL NEB SCH ×3 (05:54→19:26)
[2020-12-15] MEDS: ALBUTEROL SULF 2.5 MG/0.5ML(0.5%) NEB SOLN NEB SCH ×3 (05:54→19:26)
[2020-12-15 08:00] VITALS: BP 135/70
[2020-12-15 08:43] VITALS: BP 135/70
[2020-12-15] MEDS: GABAPENTIN 300 MG CAP PO SCH ×2 (09:38→21:24)
[2020-12-15] MEDS: cefTRIAXone 1GM/50ML D5W 50 ML IV SCH (09:38)
[2020-12-15] MEDS: predniSONE 20 MG TAB PO SCH (09:38)
[2020-12-15] MEDS: ENALAPRIL MALEATE 10 MG TAB PO SCH (09:39)
[2020-12-15] MEDS: ASPirin-EC 81 mg tab PO SCH (09:39)
[2020-12-15] MEDS: ATORVASTATIN 20 MG TAB PO SCH (09:40)
[2020-12-15] MEDS: FAMOTIDINE 20 MG TAB PO SCH (09:41)
[2020-12-15] MEDS: CLOPIDOGREL BISULFATE 75 MG TAB PO SCH (09:42)
[2020-12-15] MEDS: METOPROLOL TARTRATE 25 MG TAB PO SCH ×2 (09:43→21:23)
[2020-12-15] MEDS: AMIODARONE HCL 200 MG TAB PO SCH ×2 (09:43→13:43)
[2020-12-15] MEDS: FUROSEMIDE 20 MG/2 ML VIAL IV SCH (09:43)
[2020-12-15] MEDS: HYDROcodone-ACET 5/325MG TAB PO PRN (09:51)
[2020-12-15] MEDS: INSULIN LANTUS (GLARGINE) 1 /0.01ml (100units/ml) SC SCH ×2 (09:52→21:27)
[2020-12-15] MEDS ORDERED: APIXABAN 2.5 MG TAB PO SCH (10:00)
[2020-12-15 13:10] VITALS: BP 132/70
[2020-12-15 17:04] VITALS: BP 115/63
[2020-12-15 20:00] VITALS: BP 134/74
[2020-12-15] MEDS: APIXABAN 5 MG TAB PO SCH (21:22)
[2020-12-15] MEDS ORDERED: LORazepam 0.5 MG TAB PO PRN (23:45)
[2020-12-16] MEDS ORDERED: LORazepam 0.5 MG TAB PO PRN (00:45)
[2020-12-16 05:00] VITALS: BP 132/69
[2020-12-16] MEDS: InsuLIN REG 1unit/0.01ml Soln (100units/ml) SC SCH ×3 (05:26→18:48)
[2020-12-16] MEDS: ACCU-CHEK COMFORT CURVE STRIP VI SCH ×3 (05:26→18:00)
[2020-12-16] MEDS: BUDESONIDE (INHALATION) 0.5 MG/2 ML NEB NEB SCH (07:21)
[2020-12-16] MEDS: IPRATROPIUM BROM 0.5 MG/2.5ML INH SOL NEB SCH ×2 (07:21→12:00)
[2020-12-16] MEDS: ALBUTEROL SULF 2.5 MG/0.5ML(0.5%) NEB SOLN NEB SCH ×2 (07:21→12:00)
[2020-12-16 09:00] VITALS: BP_SYST 128; BP_SYST 134; BP_DIAS 64; BP_DIAS 80
[2020-12-16] MEDS ORDERED: predniSONE 20 MG TAB PO SCH (10:00)
[2020-12-16] MEDS ORDERED: AMIODARONE HCL 200 MG TAB PO SCH (10:00)
[2020-12-16] MEDS: INSULIN LANTUS (GLARGINE) 1 /0.01ml (100units/ml) SC SCH (10:47)
[2020-12-16] MEDS: cefTRIAXone 1GM/50ML D5W 50 ML IV SCH (10:50)
[2020-12-16] MEDS: ASPirin-EC 81 mg tab PO SCH (10:54)
[2020-12-16] MEDS: ENALAPRIL MALEATE 10 MG TAB PO SCH (10:55)
[2020-12-16] MEDS: GABAPENTIN 300 MG CAP PO SCH (10:56)
[2020-12-16] MEDS: CLOPIDOGREL BISULFATE 75 MG TAB PO SCH (10:56)
[2020-12-16] MEDS: ATORVASTATIN 20 MG TAB PO SCH (10:57)
[2020-12-16] MEDS: FAMOTIDINE 20 MG TAB PO SCH (11:00)
[2020-12-16] MEDS: APIXABAN 5 MG TAB PO SCH (11:01)
[2020-12-16] MEDS: METOPROLOL TARTRATE 25 MG TAB PO SCH (11:02)
[2020-12-16] MEDS: FUROSEMIDE 20 MG/2 ML VIAL IV SCH (11:03)
[2020-12-16 13:00] VITALS: BP 115/51
[2020-12-16] MEDS ORDERED: ASPI-543 PO (14:21)
[2020-12-16] MEDS ORDERED: CLOP75TA28 PO (14:21)
[2020-12-16] MEDS ORDERED: AMIO200T33 PO (14:21)
[2020-12-16] MEDS ORDERED: APIX5TAB PO (14:27)
[2020-12-16] MEDS ORDERED: MET25T PO (14:27)
[2020-12-16] MEDS ORDERED: ENAL10TA13 PO (14:27)
[2020-12-16] MEDS ORDERED: LEVO500T31 PO (14:28)
[2020-12-16] MEDS ORDERED: SPIR25TA8 PO (14:38)
[2020-12-16] MEDS ORDERED: FURO20TA3 PO (14:38)
[2020-12-16] MEDS ORDERED: CEPH250C PO (14:41)
[2020-12-16 16:32] VITALS: BP 128/64
[2020-12-16 17:00] VITALS: BP 112/61
== END 2020-12-16 18:55 | disposition home or self-care (01) | DRG 853 ==
LOC: EDBD 14:11 → ER 14:11 → TELE 14:12 → TELE-EAST 20:40 → TELE-CENTR 12-08 03:57
PROVIDERS: ADMIT Nurse Practitioner Acute Care; ATTEND Internal Medicine Nephrology
PROC: 5A09357 Assistance with Respiratory Ventilation, Less than 24 Consecutive Hours, Continuous Positive Airway Pressure (ICD-10-PCS; 2020-12-07)
PROC: 027034Z Dilation of Coronary Artery, One Artery with Drug-eluting Intraluminal Device, Percutaneous Approach (ICD-10-PCS; 2020-12-12)
PROC: 4A033BC Measurement of Arterial Pressure, Coronary, Percutaneous Approach (ICD-10-PCS; 2020-12-12)
PROC: 4A023N7 Measurement of Cardiac Sampling and Pressure, Left Heart, Percutaneous Approach (ICD-10-PCS; 2020-12-12)
PROC: B215YZZ Fluoroscopy of Left Heart using Other Contrast (ICD-10-PCS; 2020-12-12)
PROC: B211YZZ Fluoroscopy of Multiple Coronary Arteries using Other Contrast (ICD-10-PCS; 2020-12-12)
PROC: B240ZZ3 Ultrasonography of Single Coronary Artery, Intravascular (ICD-10-PCS; 2020-12-12)
PROC: 0JH606Z Insertion of Pacemaker, Dual Chamber into Chest Subcutaneous Tissue and Fascia, Open Approach (ICD-10-PCS; principal; 2020-12-14)
PROC: 02H63JZ Insertion of Pacemaker Lead into Right Atrium, Percutaneous Approach (ICD-10-PCS; 2020-12-14)
PROC: 02HK3JZ Insertion of Pacemaker Lead into Right Ventricle, Percutaneous Approach (ICD-10-PCS; 2020-12-14)
DX: A41.51 Sepsis due to Escherichia coli [E. coli] (principal); J96.21 Acute and chronic respiratory failure with hypoxia; I50.23 Acute on chronic systolic (congestive) heart failure; J15.0 Pneumonia due to Klebsiella pneumoniae; J15.5 Pneumonia due to Escherichia coli; I69.351 Hemiplegia and hemiparesis following cerebral infarction affecting right dominant side; J44.1 Chronic obstructive pulmonary disease with (acute) exacerbation; J98.11 Atelectasis; N39.0 Urinary tract infection, site not specified; I48.92 Unspecified atrial flutter; J44.0 Chronic obstructive pulmonary disease with (acute) lower respiratory infection; Z68.41 Body mass index [BMI] 40.0-44.9, adult; A41.59 Other Gram-negative sepsis; D69.6 Thrombocytopenia, unspecified; Z20.822 Contact with and (suspected) exposure to COVID-19; I48.91 Unspecified atrial fibrillation; E11.9 Type 2 diabetes mellitus without complications; D64.9 Anemia, unspecified; E66.01 Morbid (severe) obesity due to excess calories; F17.200 Nicotine dependence, unspecified, uncomplicated; K74.60 Unspecified cirrhosis of liver; G47.33 Obstructive sleep apnea (adult) (pediatric); I11.0 Hypertensive heart disease with heart failure; I25.10 Atherosclerotic heart disease of native coronary artery without angina pectoris; I35.0 Nonrheumatic aortic (valve) stenosis; I44.30 Unspecified atrioventricular block; I49.5 Sick sinus syndrome; K21.9 Gastro-esophageal reflux disease without esophagitis; E78.5 Hyperlipidemia, unspecified; M19.90 Unspecified osteoarthritis, unspecified site; R91.1 Solitary pulmonary nodule; K80.20 Calculus of gallbladder without cholecystitis without obstruction; Z88.0 Allergy status to penicillin; Z88.1 Allergy status to other antibiotic agents; Z79.01 Long term (current) use of anticoagulants; Z79.02 Long term (current) use of antithrombotics/antiplatelets; Z79.84 Long term (current) use of oral hypoglycemic drugs; Z80.0 Family history of malignant neoplasm of digestive organs; Z82.49 Family history of ischemic heart disease and other diseases of the circulatory system; Z83.3 Family history of diabetes mellitus; Z79.899 Other long term (current) drug therapy
CPT/HCPCS: 33208; 36415; 71045; 71250; 76705; 78226; 80048; 80053; 80061; 81001; 82962; 83036; 83605; 83735; 83880; 84443; 84484; 85025; 85610; 85730; 86850; 86900; 86901; 87040; 87070; 87077; 87086; 87186; 87205; 87426; 87804; 92928; 93005; 93306; 93458; 93886; 94640; 94660; 96365; 96375; 99152; 99153; C1785; C1874; C1887; G0378; J0696; J1815; J2185; J2250; J2405; J3490

== ENCOUNTER 2020-12-23 20:34 | Inpatient (IN) | payer MEDICARE, MEDICAID ==
[~2020-12-23] VITALS: Ht 172.7 cm; Wt 136.0 kg
[~2020-12-23 20:34] MED LIST changes: -ACE3T PO; +ALBUAER3 IN; +AMIO200T33 PO; +ASPI-543 PO; -ATOR20TA PO; +BUSP7.5T8 PO; +CEPH250C PO; +CLOP75TA28 PO; -CYCL5TAB89; -ENAL10TA13 PO; -FAMO-12 PO; +FLUT1SPR5; +FURO20TA3 PO; -GABA-339 PO; +GABA800T97 PO; -GLIP10TA9 PO; +HYDR-4798 PO; +INSU1INJ26 SC; +MET25T PO; -MULT1TAB28 PO; +OMEP-260 PO; -PHE100C PO; +SITA100T7 PO; -TIOTCAP; +TIOTCAP IN; -TIZA4TAB9 PO; -ZOLP5TAB; -[UNRECOGNIZED DRUG - REMARK]
[2020-12-23 22:41] LABS: Basophils # (auto) 0 10 ^3/uL (0-0.2); Basophils % (auto) 0.5 % (0.0-2.0); Eosinophils # (auto) 0.2 10 ^3/uL (0-0.8); Eosinophils % (auto) 1.8 % (0.0-7.0); Hematocrit 38.3 % (41.0-53.0); Lymphocytes # (auto) 1.5 10 ^3/uL (0.4-5.4); Mean Corpuscular Hemoglobin 30.6 pg (28.0-32.0); Mean Corpuscular Volume 89.9 fL (80.0-100.0); Monocytes # (auto) 0.8 10 ^3/uL (0-1.3); Monocytes % (auto) 7.7 % (0.0-12.0); Neutrophils # (auto) 7.3 10 ^3/uL (1.6-8.6); Nucleated Red Blood Cells % 0.1 %; Platelet Count (auto) 104 10^3/uL (140-450); Red Blood Cells 4.26 10^6/uL (4.5-5.90); Red Cell Distribution Width 14.3 % (11.8-14.3); White Blood Cell 9.8 10^3/uL (4.4-10.8)
[2020-12-23 22:56] LABS: Albumin 2.7 g/dL (3.4-5.0); Calcium 8.6 mg/dL (8.5-10.1); Potassium 4.4 mmol/L (3.5-5.1)
[2020-12-23 23:03] LABS: BUN/Creatinine Ratio 12.5; Bilirubin, Total 0.4 mg/dL (0.2-1.0); Total Protein 6.3 g/dL (6.4-8.2)
[2020-12-23 23:33] LABS: Urine Bacteria FEW /hpf (None Seen); Urine Blood 2+ /uL (Negative); Urine Mucus FEW (None Seen); Urine Specific Gravity 1.023 (1.001-1.035); Urine WBC 1 /hpf (0 - 3)
[2020-12-23 23:33] LABS: INR 1.14 (0.9-1.15); Partial Thromboplastin Time 26.6 sec (23.0-31.2)
[2020-12-24] MEDS ORDERED: ONDANSETRON HCL 4 MG/2 ML VIAL IV ONE (02:30)
[2020-12-24] MEDS ORDERED: MORPHINE SULFATE 4 MG/ML SYR/VIAL IV ONE (02:30)
[2020-12-24] MEDS ORDERED: HYDROcodone-ACET 5/325MG TAB PO PRN (06:30)
[2020-12-24] MEDS ORDERED: MORPHINE SULFATE 4 MG/ML SYR/VIAL IV PRN (06:30)
[2020-12-24] MEDS ORDERED: DEXTROSE (50%) 50ML SYRG IV PRN (06:30)
[2020-12-24] MEDS ORDERED: MORPHINE SULF INJ 2 MG/ML SYRINGE 1ML IV PRN (06:30)
[2020-12-24] MEDS ORDERED: ACETAMINOPHEN 325 MG TAB PO PRN (06:30)
[2020-12-24] MEDS ORDERED: ONDANSETRON HCL 4 MG/2 ML VIAL IV PRN (06:30)
[2020-12-24] MEDS ORDERED: NITROGLYCERIN 0.4 MG SL TAB SL PRN (06:30)
[2020-12-24] MEDS: ACCU-CHEK COMFORT CURVE STRIP VI SCH ×4 (07:11→21:21)
[2020-12-24] MEDS: InsuLIN REG 1unit/0.01ml Soln (100units/ml) SC SCH ×4 (07:19→21:31)
[2020-12-24 08:02] LABS: Basophils # (auto) 0.1 10 ^3/uL (0-0.2); Basophils % (auto) 0.6 % (0.0-2.0); Eosinophils # (auto) 0.2 10 ^3/uL (0-0.8); Eosinophils % (auto) 1.8 % (0.0-7.0); Lymphocytes # (auto) 1.7 10 ^3/uL (0.4-5.4); Lymphocytes % (auto) 19.2 % (10.0-50.0); Mean Corpuscular Hemoglobin 30.7 pg (28.0-32.0); Mean Corpuscular Hgb Conc. 34.1 g/dL (32.0-36.0); Monocytes # (auto) 0.8 10 ^3/uL (0-1.3); Neutrophils # (auto) 6.3 10 ^3/uL (1.6-8.6); Neutrophils % (auto) 69.4 % (37.0-80.0); Nucleated Red Blood Cells % 0.1 %; Platelet Count (auto) 94 10^3/uL (140-450); Red Blood Cells 4.23 10^6/uL (4.5-5.90); Red Cell Distribution Width 14.1 % (11.8-14.3); White Blood Cell 9.1 10^3/uL (4.4-10.8)
[2020-12-24 08:33] LABS: Potassium 4.4 mmol/L (3.5-5.1)
[2020-12-24 08:40] LABS: Albumin 2.6 g/dL (3.4-5.0); BUN/Creatinine Ratio 12.7; Bilirubin, Total 0.6 mg/dL (0.2-1.0); Calcium 8.5 mg/dL (8.5-10.1); Total Protein 5.7 g/dL (6.4-8.2)
[2020-12-24] MEDS: FUROSEMIDE 20 MG/2 ML VIAL IV SCH (10:15)
[2020-12-24] MEDS: ASPirin 81 mg TAB PO SCH (10:15)
[2020-12-24] MEDS: FAMOTIDINE (10MG/ML) 2ML VL IV SCH ×2 (10:15→21:20)
[2020-12-24] MEDS: ZINC SULFATE 220mg CAP or TAB PO SCH (10:16)
[2020-12-24] MEDS: MULTIPLE VITAMIN TAB PO SCH (10:16)
[2020-12-24] MEDS: ASCORBIC ACID 500 MG TAB PO SCH ×2 (10:16→21:21)
[2020-12-24] MEDS: HEPARIN SODIUM (PORCINE) 5000 UNITS/ML 1ML VIAL SC SCH ×2 (10:17→22:00)
[2020-12-24 13:00] VITALS: BP 136/83
[2020-12-24] MEDS: SODIUM CHLOR 0.9% PF (SALINE LOCK) 10ML VIAL/SYR IV SCH ×2 (14:49→21:20)
[2020-12-24 17:00] VITALS: BP 113/47
[2020-12-24] MEDS: Glucerna Carbsteady SHAKE Vanilla 8oz PO SCH (18:06)
[2020-12-24] MEDS: DOCUSATE SOD 100 MG CAP PO PRN (19:25)
[2020-12-24 20:00] VITALS: BP 142/79
[2020-12-24 22:00] VITALS: BP 142/79
[2020-12-24] MEDS ORDERED: ATORVASTATIN 20 MG TAB PO SCH (22:00)
[2020-12-24] MEDS ORDERED: InsuLIN REG 1unit/0.01ml Soln (100units/ml) SC SCH (22:00)
[2020-12-25 05:00] VITALS: BP 141/75
[2020-12-25 06:11] LABS: Basophils # (auto) 0 10 ^3/uL (0-0.2); Eosinophils # (auto) 0.1 10 ^3/uL (0-0.8); Hemoglobin 12.5 g/dL (13.5-17.5); Lymphocytes % (auto) 12.2 % (10.0-50.0)
[2020-12-25] MEDS: SODIUM CHLOR 0.9% PF (SALINE LOCK) 10ML VIAL/SYR IV SCH (06:20)
[2020-12-25] MEDS: ACCU-CHEK COMFORT CURVE STRIP VI SCH (06:20)
[2020-12-25 06:30] LABS: Potassium 3.7 mmol/L (3.5-5.1)
[2020-12-25 06:32] LABS: Basophils % (auto) 0.5 % (0.0-2.0); Eosinophils % (auto) 1.6 % (0.0-7.0); Mean Corpuscular Hemoglobin 30.8 pg (28.0-32.0); Mean Corpuscular Hgb Conc. 34.8 g/dL (32.0-36.0); Mean Corpuscular Volume 88.6 fL (80.0-100.0); Monocytes # (auto) 0.7 10 ^3/uL (0-1.3); Monocytes % (auto) 8.9 % (0.0-12.0); Neutrophils % (auto) 76.8 % (37.0-80.0); Platelet Count (auto) 92 10^3/uL (140-450); Red Blood Cells 4.06 10^6/uL (4.5-5.90); White Blood Cell 7.8 10^3/uL (4.4-10.8)
[2020-12-25 06:39] LABS: Albumin 2.6 g/dL (3.4-5.0); BUN/Creatinine Ratio 15.8; Bilirubin, Total 0.9 mg/dL (0.2-1.0); Calcium 8.9 mg/dL (8.5-10.1); Total Protein 5.8 g/dL (6.4-8.2)
[2020-12-25] MEDS ORDERED: FLEET ENEMA(ADULT) 135 ML PR ONE (08:00)
[2020-12-25] MEDS: Glucerna Carbsteady SHAKE Vanilla 8oz PO SCH (09:22)
[2020-12-25] MEDS: FAMOTIDINE (10MG/ML) 2ML VL IV SCH (09:47)
[2020-12-25] MEDS: MULTIPLE VITAMIN TAB PO SCH (09:47)
[2020-12-25] MEDS: ASPirin 81 mg TAB PO SCH (09:47)
[2020-12-25] MEDS: ZINC SULFATE 220mg CAP or TAB PO SCH (09:47)
[2020-12-25] MEDS: HEPARIN SODIUM (PORCINE) 5000 UNITS/ML 1ML VIAL SC SCH (09:47)
[2020-12-25] MEDS: ASCORBIC ACID 500 MG TAB PO SCH (09:47)
[2020-12-25] MEDS: DOCUSATE SOD 100 MG CAP PO PRN (09:48)
[2020-12-25] MEDS: FUROSEMIDE 20 MG/2 ML VIAL IV SCH (09:48)
[2020-12-25 10:22] VITALS: BP 117/81
== END 2020-12-25 10:36 | disposition home or self-care (01) | DRG 313 ==
LOC: EDBD 20:34 → ER 20:34 → TELE 20:35 → TELE-CENTR 12-24 12:42
PROVIDERS: ADMIT Nurse Practitioner Family; ATTEND Nurse Practitioner Family
PROC: 4B02XSZ Measurement of Cardiac Pacemaker, External Approach (ICD-10-PCS; principal; 2020-12-24)
DX: R07.9 Chest pain, unspecified (principal); D68.69 Other thrombophilia; I25.110 Atherosclerotic heart disease of native coronary artery with unstable angina pectoris; I48.92 Unspecified atrial flutter; I50.42 Chronic combined systolic (congestive) and diastolic (congestive) heart failure; Z68.42 Body mass index [BMI] 45.0-49.9, adult; N17.9 Acute kidney failure, unspecified; Z20.822 Contact with and (suspected) exposure to COVID-19; K21.9 Gastro-esophageal reflux disease without esophagitis; M19.90 Unspecified osteoarthritis, unspecified site; E11.21 Type 2 diabetes mellitus with diabetic nephropathy; E11.65 Type 2 diabetes mellitus with hyperglycemia; E66.01 Morbid (severe) obesity due to excess calories; E78.5 Hyperlipidemia, unspecified; I11.0 Hypertensive heart disease with heart failure; J44.9 Chronic obstructive pulmonary disease, unspecified; Y83.8 Other surgical procedures as the cause of abnormal reaction of the patient, or of later complication, without mention of misadventure at the time of the procedure; Y92.89 Other specified places as the place of occurrence of the external cause; Z87.891 Personal history of nicotine dependence; Z95.0 Presence of cardiac pacemaker; Z95.5 Presence of coronary angioplasty implant and graft; Z79.899 Other long term (current) drug therapy; Z82.49 Family history of ischemic heart disease and other diseases of the circulatory system; Z80.0 Family history of malignant neoplasm of digestive organs; Z79.891 Long term (current) use of opiate analgesic; Z79.01 Long term (current) use of anticoagulants; Z79.4 Long term (current) use of insulin; Z80.51 Family history of malignant neoplasm of kidney; Z83.42 Family history of familial hypercholesterolemia; Z88.1 Allergy status to other antibiotic agents; Z88.0 Allergy status to penicillin; Z88.8 Allergy status to other drugs, medicaments and biological substances
CPT/HCPCS: 36415; 71045; 80053; 81001; 82962; 83735; 83880; 84443; 84484; 85025; 85610; 85730; 87426; 93005; 96372; 96374; 96375; 96376; G0378; J1815; J2405; J3490

== ENCOUNTER → 2021-04-05 | Outpatient (CLI) | payer MEDICARE, MEDICAID ==
[~2021-04-05] MED LIST changes: -BUSP7.5T8 PO; +CEPH-322 PO; -CEPH250C PO; -SPIR25TA8 PO
== END | disposition home or self-care (01) ==
LOC: XYW 14:40
PROVIDERS: ATTEND Internal Medicine
DX: I08.8 Other rheumatic multiple valve diseases (principal); I50.9 Heart failure, unspecified
CPT/HCPCS: 93306

== ENCOUNTER 2021-04-16 19:32 | Inpatient (IN) | payer MEDICARE, MEDICAID ==
[~2021-04-16] VITALS: Ht 177.8 cm; Wt 125.1 kg
[2021-04-16 22:04] LABS: Basophils # (auto) 0.1 10 ^3/uL (0-0.2); Basophils % (auto) 0.9 % (0.0-2.0); Eosinophils # (auto) 0 10 ^3/uL (0-0.8); Eosinophils % (auto) 0.2 % (0.0-7.0); Hematocrit 45.3 % (41.0-53.0); Hemoglobin 15.3 g/dL (13.5-17.5); Lymphocytes # (auto) 1.2 10 ^3/uL (0.4-5.4); Lymphocytes % (auto) 13.2 % (10.0-50.0); Mean Corpuscular Hemoglobin 30.6 pg (28.0-32.0); Mean Corpuscular Hgb Conc. 33.8 g/dL (32.0-36.0); Mean Corpuscular Volume 90.4 fL (80.0-100.0); Monocytes # (auto) 0.9 10 ^3/uL (0-1.3); Monocytes % (auto) 9.5 % (0.0-12.0); Neutrophils # (auto) 7.1 10 ^3/uL (1.6-8.6); Neutrophils % (auto) 76.2 % (37.0-80.0); Nucleated Red Blood Cells % 0.1 %; Red Blood Cells 5.01 10^6/uL (4.5-5.90); Red Cell Distribution Width 14.7 % (11.8-14.3); White Blood Cell 9.3 10^3/uL (4.4-10.8)
[2021-04-16 22:15] LABS: Albumin 3.7 g/dL (3.4-5.0); Anion Gap 6 (5-15); BUN/Creatinine Ratio 10.9; Blood Urea Nitrogen 12 mg/dL (7-18); Carbon Dioxide 26 mmol/L (21-32); Chloride 104 mmol/L (98-107); GFR African American 84 mL/min; GFR Non-African American 70 mL/min; Glucose 205 mg/dL (74-106); Potassium 4.9 mmol/L (3.5-5.1); Sodium 136 mmol/L (136-145)
[2021-04-16 22:20] LABS: Alanine Aminotransferase 30 U/L (16-61); Alkaline Phosphatase 176 U/L (45-117); Aspartate Aminotransferase 24 U/L (15-37); Bilirubin, Total 1.3 mg/dL (0.2-1.0); Total Protein 7.5 g/dL (6.4-8.2)
[2021-04-17] MEDS ORDERED: cefTRIAXone 1GM/50ML D5W 50 ML IV ONE (01:30)
[2021-04-17] MEDS ORDERED: AZITHROMYCIN 500MG/ 250ML 250 ML IV ONE (01:30)
[2021-04-17 04:26] LABS: Urine Bacteria NONE SEEN /hpf (None Seen); Urine Blood Negative /uL (Negative); Urine Mucus FEW (None Seen); Urine Specific Gravity 1.008 (1.001-1.035); Urine WBC 1 /hpf (0 - 3)
[2021-04-17] MEDS ORDERED: DEXTROSE (50%) 50ML SYRG IV PRN (05:30)
[2021-04-17] MEDS ORDERED: FUROSEMIDE 40 MG/4 ML VIAL IV ONE (05:30)
[2021-04-17] MEDS ORDERED: ONDANSETRON HCL 4 MG/2 ML VIAL IV PRN (05:30)
[2021-04-17] MEDS ORDERED: ACETAMINOPHEN 325 MG TAB PO PRN (05:30)
[2021-04-17] MEDS ORDERED: MORPHINE SULF INJ 2 MG/ML SYRINGE 1ML IV PRN (05:30)
[2021-04-17] MEDS ORDERED: NITROGLYCERIN 0.4 MG SL TAB SL PRN (05:30)
[2021-04-17] MEDS ORDERED: methylPREDNISolone SOD SUCC 125 MG/2 ML VL IV ONE (05:45)
[2021-04-17] MEDS: ACCU-CHEK COMFORT CURVE STRIP VI SCH ×4 (07:41→22:16)
[2021-04-17] MEDS: InsuLIN REG 1unit/0.01ml Soln (100units/ml) SC SCH ×4 (07:42→22:22)
[2021-04-17] MEDS: SODIUM CHLOR 0.9% PF (SALINE LOCK) 10ML VIAL/SYR IV SCH ×3 (07:42→22:15)
[2021-04-17 08:30] VITALS: BP 169/71
[2021-04-17 09:10] LABS: Basophils # (auto) 0.1 10 ^3/uL (0-0.2); Basophils % (auto) 0.9 % (0.0-2.0); Eosinophils # (auto) 0 10 ^3/uL (0-0.8); Eosinophils % (auto) 0.1 % (0.0-7.0); Hematocrit 45.5 % (41.0-53.0); Hemoglobin 15.7 g/dL (13.5-17.5); Lymphocytes % (auto) 8.7 % (10.0-50.0); Mean Corpuscular Hemoglobin 31.3 pg (28.0-32.0); Mean Corpuscular Hgb Conc. 34.6 g/dL (32.0-36.0); Mean Corpuscular Volume 90.6 fL (80.0-100.0); Monocytes # (auto) 0.3 10 ^3/uL (0-1.3); Monocytes % (auto) 3.2 % (0.0-12.0); Neutrophils # (auto) 9.5 10 ^3/uL (1.6-8.6); Neutrophils % (auto) 87.1 % (37.0-80.0); Red Blood Cells 5.03 10^6/uL (4.5-5.90); Red Cell Distribution Width 14.8 % (11.8-14.3); White Blood Cell 10.9 10^3/uL (4.4-10.8)
[2021-04-17 09:27] LABS: Albumin 3.4 g/dL (3.4-5.0); Calcium 9.3 mg/dL (8.5-10.1); Potassium 4.1 mmol/L (3.5-5.1)
[2021-04-17 09:30] LABS: BUN/Creatinine Ratio 11.6; Bilirubin, Total 1.4 mg/dL (0.2-1.0)
[2021-04-17] MEDS ORDERED: ENOXAPARIN SOD 40 MG/0.4 ML SYRINGE SC SCH (10:00)
[2021-04-17] MEDS: FUROSEMIDE 40 MG/4 ML VIAL IV SCH (10:00)
[2021-04-17] MEDS: MULTIPLE VITAMIN TAB PO SCH (10:00)
[2021-04-17] MEDS ORDERED: AZITHROMYCIN 500MG/ 250ML 250 ML IV SCH (10:00)
[2021-04-17] MEDS: ASPirin 81 mg TAB PO SCH (10:27)
[2021-04-17] MEDS: CARVEDILOL 12.5 MG TAB PO SCH ×2 (10:28→22:16)
[2021-04-17] MEDS: CLOPIDOGREL BISULFATE 75 MG TAB PO SCH (10:29)
[2021-04-17] MEDS: ASCORBIC ACID 500 MG TAB PO SCH ×2 (10:29→22:16)
[2021-04-17] MEDS: ZINC SULFATE 220mg CAP or TAB PO SCH (10:37)
[2021-04-17] MEDS ORDERED: ALBUTEROL SULF 2.5 MG/0.5ML(0.5%) NEB SOLN NEB PRN (16:15)
[2021-04-17] MEDS ORDERED: IPRATROPIUM BROM 0.5 MG/2.5ML INH SOL NEB PRN (16:15)
[2021-04-17] MEDS: DOXYCYCLINE 100MG/250ML 250 ML IV SCH (16:38)
[2021-04-17 19:05] VITALS: BP 136/77
[2021-04-17] MEDS: ALBUTEROL SULF 2.5 MG/0.5ML(0.5%) NEB SOLN NEB SCH ×2 (19:31→22:27)
[2021-04-17] MEDS: BUDESONIDE (INHALATION) 0.5 MG/2 ML NEB NEB SCH (19:32)
[2021-04-17] MEDS: IPRATROPIUM BROM 0.5 MG/2.5ML INH SOL NEB SCH ×2 (19:32→22:27)
[2021-04-17 21:48] VITALS: BP 133/56
[2021-04-17 22:00] VITALS: BP 116/77
[2021-04-17] MEDS ORDERED: INSULIN LANTUS (GLARGINE) 1 /0.01ml (100units/ml) SC SCH (22:00)
[2021-04-17] MEDS: FLUTICASONE PROP NASAL SPR 0.05 % (50MCG) 16GM EACHNOSTRI SCH (22:00)
[2021-04-17] MEDS: methylPREDNISolone SOD SUCC 40 MG/ML VL IV SCH (22:15)
[2021-04-17] MEDS: APIXABAN 5 MG TAB PO SCH (22:16)
[2021-04-17] MEDS: AMIODARONE HCL 200 MG TAB PO SCH (22:16)
[2021-04-17 22:20] VITALS: BP 136/77
[2021-04-17] MEDS: HYDROcodone-ACET 5/325MG TAB PO PRN (22:23)
[2021-04-18] MEDS: IPRATROPIUM BROM 0.5 MG/2.5ML INH SOL NEB SCH ×6 (02:17→22:00)
[2021-04-18] MEDS: ALBUTEROL SULF 2.5 MG/0.5ML(0.5%) NEB SOLN NEB SCH ×6 (02:17→22:00)
[2021-04-18] MEDS: DOXYCYCLINE 100MG/250ML 250 ML IV SCH ×2 (03:42→16:27)
[2021-04-18 05:00] VITALS: BP 119/59
[2021-04-18 05:34] LABS: Basophils # (auto) 0 10 ^3/uL (0-0.2); Eosinophils # (auto) 0 10 ^3/uL (0-0.8); Hematocrit 40.3 % (41.0-53.0); Lymphocytes # (auto) 0.9 10 ^3/uL (0.4-5.4); Lymphocytes % (auto) 6.6 % (10.0-50.0); Mean Corpuscular Hgb Conc. 34.6 g/dL (32.0-36.0); Mean Corpuscular Volume 89.5 fL (80.0-100.0); Monocytes # (auto) 0.6 10 ^3/uL (0-1.3); Monocytes % (auto) 4.7 % (0.0-12.0); Neutrophils # (auto) 11.7 10 ^3/uL (1.6-8.6); Neutrophils % (auto) 88.7 % (37.0-80.0); Nucleated Red Blood Cells % 0.1 %; Red Blood Cells 4.51 10^6/uL (4.5-5.90); Red Cell Distribution Width 14.5 % (11.8-14.3); White Blood Cell 13.2 10^3/uL (4.4-10.8)
[2021-04-18] MEDS: BUDESONIDE (INHALATION) 0.5 MG/2 ML NEB NEB SCH ×2 (05:38→18:40)
[2021-04-18 06:02] LABS: Albumin 2.9 g/dL (3.4-5.0); Calcium 9.3 mg/dL (8.5-10.1); Magnesium 2.2 mg/dL (1.6-2.6)
[2021-04-18] MEDS: SODIUM CHLOR 0.9% PF (SALINE LOCK) 10ML VIAL/SYR IV SCH ×3 (06:03→20:54)
[2021-04-18] MEDS: ACCU-CHEK COMFORT CURVE STRIP VI SCH ×4 (06:04→20:50)
[2021-04-18 06:06] LABS: BUN/Creatinine Ratio 21.1; Bilirubin, Total 0.8 mg/dL (0.2-1.0); Total Protein 6.6 g/dL (6.4-8.2)
[2021-04-18] MEDS: InsuLIN REG 1unit/0.01ml Soln (100units/ml) SC SCH ×4 (06:16→20:49)
[2021-04-18 09:00] VITALS: BP 143/74
[2021-04-18] MEDS: APIXABAN 5 MG TAB PO SCH (09:22)
[2021-04-18] MEDS: methylPREDNISolone SOD SUCC 40 MG/ML VL IV SCH ×2 (09:22→20:54)
[2021-04-18] MEDS: ASPirin 81 mg TAB PO SCH (09:22)
[2021-04-18] MEDS: DOCUSATE SOD 100 MG CAP PO PRN (09:22)
[2021-04-18] MEDS: CLOPIDOGREL BISULFATE 75 MG TAB PO SCH (09:22)
[2021-04-18] MEDS: PANTOPRAZOLE 40 MG TAB PO SCH (09:22)
[2021-04-18] MEDS: ASCORBIC ACID 500 MG TAB PO SCH ×2 (09:23→20:51)
[2021-04-18] MEDS: HYDROcodone-ACET 5/325MG TAB PO PRN ×2 (09:23→20:56)
[2021-04-18] MEDS: MULTIPLE VITAMIN TAB PO SCH (09:23)
[2021-04-18] MEDS: AMIODARONE HCL 200 MG TAB PO SCH ×2 (09:23→20:53)
[2021-04-18] MEDS: ZINC SULFATE 220mg CAP or TAB PO SCH (09:23)
[2021-04-18] MEDS: CARVEDILOL 12.5 MG TAB PO SCH ×2 (09:24→20:53)
[2021-04-18] MEDS: FUROSEMIDE 40 MG/4 ML VIAL IV SCH (09:25)
[2021-04-18] MEDS: FLUTICASONE PROP NASAL SPR 0.05 % (50MCG) 16GM EACHNOSTRI SCH ×2 (09:41→20:54)
[2021-04-18 12:50] VITALS: BP 109/66
[2021-04-18 16:48] VITALS: BP 130/63
[2021-04-18] MEDS: INSULIN LANTUS (GLARGINE) 1 /0.01ml (100units/ml) SC SCH (20:50)
[2021-04-18 21:55] VITALS: BP 129/77
[2021-04-18] MEDS: MORPHINE SULFATE 4 MG/ML SYR/VIAL IV PRN (21:59)
[2021-04-19] MEDS: HYDROcodone-ACET 5/325MG TAB PO PRN ×3 (00:58→20:50)
[2021-04-19] MEDS: IPRATROPIUM BROM 0.5 MG/2.5ML INH SOL NEB SCH ×6 (02:00→22:29)
[2021-04-19] MEDS: ALBUTEROL SULF 2.5 MG/0.5ML(0.5%) NEB SOLN NEB SCH ×6 (02:00→22:29)
[2021-04-19] MEDS: DOXYCYCLINE 100MG/250ML 250 ML IV SCH (04:13)
[2021-04-19 05:00] VITALS: BP 138/78
[2021-04-19] MEDS: SODIUM CHLOR 0.9% PF (SALINE LOCK) 10ML VIAL/SYR IV SCH ×3 (05:08→20:51)
[2021-04-19] MEDS: ACCU-CHEK COMFORT CURVE STRIP VI SCH ×4 (05:08→20:53)
[2021-04-19] MEDS: InsuLIN REG 1unit/0.01ml Soln (100units/ml) SC SCH ×4 (05:10→20:44)
[2021-04-19 05:50] LABS: Basophils # (auto) 0 10 ^3/uL (0-0.2); Basophils % (auto) 0.3 % (0.0-2.0); Eosinophils # (auto) 0 10 ^3/uL (0-0.8); Hematocrit 40.9 % (41.0-53.0); Hemoglobin 14.3 g/dL (13.5-17.5); Lymphocytes % (auto) 6.4 % (10.0-50.0); Mean Corpuscular Hemoglobin 31.4 pg (28.0-32.0); Mean Corpuscular Hgb Conc. 34.9 g/dL (32.0-36.0); Mean Corpuscular Volume 89.7 fL (80.0-100.0); Monocytes # (auto) 0.7 10 ^3/uL (0-1.3); Monocytes % (auto) 4.6 % (0.0-12.0); Neutrophils # (auto) 14.1 10 ^3/uL (1.6-8.6); Neutrophils % (auto) 88.7 % (37.0-80.0); Red Blood Cells 4.55 10^6/uL (4.5-5.90); Red Cell Distribution Width 14.5 % (11.8-14.3); White Blood Cell 15.9 10^3/uL (4.4-10.8)
[2021-04-19 06:10] LABS: BUN/Creatinine Ratio 25.4; Calcium 9.9 mg/dL (8.5-10.1)
[2021-04-19] MEDS: BUDESONIDE (INHALATION) 0.5 MG/2 ML NEB NEB SCH ×2 (06:19→18:55)
[2021-04-19 09:00] VITALS: BP 141/100
[2021-04-19] MEDS ORDERED: ENOXAPARIN SOD 40 MG/0.4 ML SYRINGE SC SCH (10:00)
[2021-04-19] MEDS: ZINC SULFATE 220mg CAP or TAB PO SCH (10:06)
[2021-04-19] MEDS: ASCORBIC ACID 500 MG TAB PO SCH (10:06)
[2021-04-19] MEDS: ASPirin 81 mg TAB PO SCH (10:06)
[2021-04-19] MEDS: MULTIPLE VITAMIN TAB PO SCH (10:06)
[2021-04-19] MEDS: AMIODARONE HCL 200 MG TAB PO SCH ×2 (10:07→20:51)
[2021-04-19] MEDS: CLOPIDOGREL BISULFATE 75 MG TAB PO SCH (10:07)
[2021-04-19] MEDS: PANTOPRAZOLE 40 MG TAB PO SCH (10:07)
[2021-04-19] MEDS: methylPREDNISolone SOD SUCC 40 MG/ML VL IV SCH (10:08)
[2021-04-19] MEDS: CARVEDILOL 12.5 MG TAB PO SCH ×2 (10:08→20:52)
[2021-04-19] MEDS: FUROSEMIDE 40 MG/4 ML VIAL IV SCH (10:09)
[2021-04-19] MEDS: FLUTICASONE PROP NASAL SPR 0.05 % (50MCG) 16GM EACHNOSTRI SCH ×2 (10:09→20:51)
[2021-04-19 13:00] VITALS: BP 136/68
[2021-04-19 17:00] VITALS: BP 124/68
[2021-04-19] MEDS ORDERED: VANCOMYCIN PER PHARMACY 0 MG IV SCH (19:45)
[2021-04-19] MEDS ORDERED: VANCOMYCIN 1GM/250ML 250 ML IV ONE (20:30)
[2021-04-19] MEDS: INSULIN LANTUS (GLARGINE) 1 /0.01ml (100units/ml) SC SCH (20:44)
[2021-04-19] MEDS: APIXABAN 5 MG TAB PO SCH (20:52)
[2021-04-19 22:00] VITALS: BP 136/66
[2021-04-19] MEDS ORDERED: DOXYCYCLINE 100 MG TAB/CAP PO SCH (22:00)
[2021-04-20] MEDS: IPRATROPIUM BROM 0.5 MG/2.5ML INH SOL NEB SCH ×6 (02:00→22:41)
[2021-04-20] MEDS: ALBUTEROL SULF 2.5 MG/0.5ML(0.5%) NEB SOLN NEB SCH ×5 (02:00→22:41)
[2021-04-20 05:00] VITALS: BP 118/75
[2021-04-20] MEDS: ACCU-CHEK COMFORT CURVE STRIP VI SCH ×4 (05:25→22:34)
[2021-04-20] MEDS: SODIUM CHLOR 0.9% PF (SALINE LOCK) 10ML VIAL/SYR IV SCH ×3 (05:25→22:18)
[2021-04-20] MEDS: InsuLIN REG 1unit/0.01ml Soln (100units/ml) SC SCH ×4 (05:26→22:36)
[2021-04-20 06:19] LABS: Calcium 10.3 mg/dL (8.5-10.1); Potassium 3.9 mmol/L (3.5-5.1)
[2021-04-20 06:22] LABS: BUN/Creatinine Ratio 27.9
[2021-04-20] MEDS: BUDESONIDE (INHALATION) 0.5 MG/2 ML NEB NEB SCH ×2 (07:28→18:06)
[2021-04-20 09:00] VITALS: BP 144/81
[2021-04-20] MEDS: FLUTICASONE PROP NASAL SPR 0.05 % (50MCG) 16GM EACHNOSTRI SCH ×2 (09:07→22:18)
[2021-04-20] MEDS: MORPHINE SULFATE 4 MG/ML SYR/VIAL IV PRN (09:07)
[2021-04-20] MEDS: FUROSEMIDE 40 MG/4 ML VIAL IV SCH ×2 (09:08→09:23)
[2021-04-20] MEDS: AMIODARONE HCL 200 MG TAB PO SCH ×2 (09:08→22:18)
[2021-04-20] MEDS: CARVEDILOL 12.5 MG TAB PO SCH ×2 (09:10→22:19)
[2021-04-20] MEDS: CLOPIDOGREL BISULFATE 75 MG TAB PO SCH (09:10)
[2021-04-20] MEDS: APIXABAN 5 MG TAB PO SCH ×2 (09:10→22:19)
[2021-04-20] MEDS: PANTOPRAZOLE 40 MG TAB PO SCH (09:10)
[2021-04-20] MEDS: MULTIPLE VITAMIN TAB PO SCH (09:10)
[2021-04-20] MEDS: HYDROcodone-ACET 5/325MG TAB PO PRN ×3 (12:30→22:24)
[2021-04-20] MEDS: VANCOMYCIN 1GM/250ML 250 ML IV SCH (12:42)
[2021-04-20 12:44] VITALS: BP 130/94
[2021-04-20 13:35] VITALS: BP 130/94
[2021-04-20 17:00] VITALS: BP 117/71
[2021-04-20] MEDS ORDERED: IPRATROPIUM BROM 0.5 MG/2.5ML INH SOL ONE (17:57)
[2021-04-20] MEDS ORDERED: ALBUTEROL SULF 2.5 MG/0.5ML(0.5%) NEB SOLN ONE (17:57)
[2021-04-20] MEDS ORDERED: BUDESONIDE (INHALATION) 0.5 MG/2 ML NEB ONE (17:58)
[2021-04-20 22:00] VITALS: BP 128/65
[2021-04-20] MEDS: INSULIN LANTUS (GLARGINE) 1 /0.01ml (100units/ml) SC SCH (22:36)
[2021-04-21] MEDS ORDERED: TEMAZEPAM 15 MG CAP PO ONE (01:00)
[2021-04-21] MEDS: MORPHINE SULFATE 4 MG/ML SYR/VIAL IV PRN (02:38)
[2021-04-21] MEDS: IPRATROPIUM BROM 0.5 MG/2.5ML INH SOL NEB SCH ×6 (02:41→22:31)
[2021-04-21] MEDS: ALBUTEROL SULF 2.5 MG/0.5ML(0.5%) NEB SOLN NEB SCH ×6 (02:41→22:31)
[2021-04-21] MEDS: VANCOMYCIN 1GM/250ML 250 ML IV SCH ×2 (04:56→22:30)
[2021-04-21 05:00] VITALS: BP 127/61
[2021-04-21 06:12] LABS: Basophils # (auto) 0 10 ^3/uL (0-0.2); Basophils % (auto) 0.4 % (0.0-2.0); Eosinophils # (auto) 0.2 10 ^3/uL (0-0.8); Eosinophils % (auto) 1.8 % (0.0-7.0); Hematocrit 39.4 % (41.0-53.0); Hemoglobin 14.1 g/dL (13.5-17.5); Lymphocytes # (auto) 1.7 10 ^3/uL (0.4-5.4); Lymphocytes % (auto) 20.5 % (10.0-50.0); Mean Corpuscular Hemoglobin 31.8 pg (28.0-32.0); Mean Corpuscular Hgb Conc. 35.8 g/dL (32.0-36.0); Neutrophils # (auto) 5.5 10 ^3/uL (1.6-8.6); Neutrophils % (auto) 65.3 % (37.0-80.0); Red Blood Cells 4.43 10^6/uL (4.5-5.90); Red Cell Distribution Width 14.2 % (11.8-14.3); White Blood Cell 8.5 10^3/uL (4.4-10.8)
[2021-04-21 06:27] LABS: Chloride 101 mmol/L (98-107); Sodium 133 mmol/L (136-145)
[2021-04-21] MEDS: SODIUM CHLOR 0.9% PF (SALINE LOCK) 10ML VIAL/SYR IV SCH ×5 (06:29→22:36)
[2021-04-21] MEDS: ACCU-CHEK COMFORT CURVE STRIP VI SCH ×4 (06:29→22:38)
[2021-04-21 06:34] LABS: Anion Gap 8 (5-15); BUN/Creatinine Ratio 22.5; Blood Urea Nitrogen 29 mg/dL (7-18); Carbon Dioxide 24 mmol/L (21-32); GFR African American 70 mL/min; GFR Non-African American 58 mL/min; Glucose 198 mg/dL (74-106)
[2021-04-21] MEDS: InsuLIN REG 1unit/0.01ml Soln (100units/ml) SC SCH ×4 (06:37→22:58)
[2021-04-21] MEDS: BUDESONIDE (INHALATION) 0.5 MG/2 ML NEB NEB SCH ×2 (06:53→18:55)
[2021-04-21 09:00] VITALS: BP 133/76
[2021-04-21] MEDS: HYDROcodone-ACET 5/325MG TAB PO PRN ×2 (09:06→23:05)
[2021-04-21] MEDS: FLUTICASONE PROP NASAL SPR 0.05 % (50MCG) 16GM EACHNOSTRI SCH ×2 (09:08→22:36)
[2021-04-21] MEDS: APIXABAN 5 MG TAB PO SCH ×2 (10:06→22:38)
[2021-04-21] MEDS: CLOPIDOGREL BISULFATE 75 MG TAB PO SCH (10:06)
[2021-04-21] MEDS: FUROSEMIDE 40 MG TAB PO SCH (10:06)
[2021-04-21] MEDS: PANTOPRAZOLE 40 MG TAB PO SCH (10:07)
[2021-04-21] MEDS: CARVEDILOL 12.5 MG TAB PO SCH ×2 (10:07→22:38)
[2021-04-21] MEDS: MULTIPLE VITAMIN TAB PO SCH (10:07)
[2021-04-21] MEDS: AMIODARONE HCL 200 MG TAB PO SCH ×2 (10:07→22:36)
[2021-04-21] MEDS ORDERED: fentaNYL CITRATE 100 MCG/2 ML VL IV ONE (12:15)
[2021-04-21] MEDS ORDERED: MIDAZOLAM HCL 5 MG/ML-1ML VIAL IV ONE (12:15)
[2021-04-21] MEDS ORDERED: LIDOCAINE VISCOUS 2% 15ML UD MT PRN (12:15)
[2021-04-21] MEDS ORDERED: diphenhdrAMINE HCL 50 MG/1 ML VL IV ONE (12:15)
[2021-04-21] MEDS ORDERED: MIDAZOLAM HCL 2MG/2ML 2ml VIAL (1mg/ml) ONE (12:26)
[2021-04-21 17:00] VITALS: BP 121/82
[2021-04-21 22:00] VITALS: BP 142/91
[2021-04-21] MEDS: INSULIN LANTUS (GLARGINE) 1 /0.01ml (100units/ml) SC SCH (22:58)
[2021-04-22] MEDS: IPRATROPIUM BROM 0.5 MG/2.5ML INH SOL NEB SCH ×3 (02:00→21:56)
[2021-04-22] MEDS: ALBUTEROL SULF 2.5 MG/0.5ML(0.5%) NEB SOLN NEB SCH ×3 (02:00→21:56)
[2021-04-22 05:00] VITALS: BP 115/46
[2021-04-22] MEDS: SODIUM CHLOR 0.9% PF (SALINE LOCK) 10ML VIAL/SYR IV SCH ×6 (05:38→22:30)
[2021-04-22] MEDS: ACCU-CHEK COMFORT CURVE STRIP VI SCH ×4 (05:38→22:32)
[2021-04-22 05:52] LABS: Potassium 3.5 mmol/L (3.5-5.1)
[2021-04-22 05:56] LABS: BUN/Creatinine Ratio 22.3; Calcium 9.1 mg/dL (8.5-10.1)
[2021-04-22] MEDS: InsuLIN REG 1unit/0.01ml Soln (100units/ml) SC SCH ×4 (05:57→23:00)
[2021-04-22 09:00] VITALS: BP 113/62
[2021-04-22] MEDS: FUROSEMIDE 40 MG TAB PO SCH (10:00)
[2021-04-22] MEDS: MULTIPLE VITAMIN TAB PO SCH (10:09)
[2021-04-22] MEDS: PANTOPRAZOLE 40 MG TAB PO SCH (10:09)
[2021-04-22] MEDS: VANCOMYCIN 1GM/250ML 250 ML IV SCH ×2 (10:09→22:29)
[2021-04-22] MEDS: APIXABAN 5 MG TAB PO SCH ×2 (10:10→22:32)
[2021-04-22] MEDS: CLOPIDOGREL BISULFATE 75 MG TAB PO SCH (10:10)
[2021-04-22] MEDS: AMIODARONE HCL 200 MG TAB PO SCH ×2 (10:10→22:31)
[2021-04-22] MEDS: CARVEDILOL 12.5 MG TAB PO SCH ×2 (10:11→22:32)
[2021-04-22] MEDS: FLUTICASONE PROP NASAL SPR 0.05 % (50MCG) 16GM EACHNOSTRI SCH ×2 (10:11→22:29)
[2021-04-22] MEDS: HYDROcodone-ACET 5/325MG TAB PO PRN (10:22)
[2021-04-22] MEDS: DOCUSATE SOD 100 MG CAP PO PRN (12:19)
[2021-04-22 13:00] VITALS: BP 135/63
[2021-04-22 13:50] VITALS: BP 155/63
[2021-04-22] MEDS: HYDROcodone-ACET 10/325MG TAB PO PRN ×2 (16:56→23:01)
[2021-04-22 17:00] VITALS: BP 113/59
[2021-04-22] MEDS: BUDESONIDE (INHALATION) 0.5 MG/2 ML NEB NEB SCH (18:49)
[2021-04-22 22:00] VITALS: BP 126/61
[2021-04-22] MEDS: INSULIN LANTUS (GLARGINE) 1 /0.01ml (100units/ml) SC SCH (23:00)
[2021-04-23] MEDS: BUDESONIDE (INHALATION) 0.5 MG/2 ML NEB NEB SCH (01:15)
[2021-04-23] MEDS: IPRATROPIUM BROM 0.5 MG/2.5ML INH SOL NEB SCH ×2 (01:21→01:28)
[2021-04-23] MEDS: ALBUTEROL SULF 2.5 MG/0.5ML(0.5%) NEB SOLN NEB SCH ×2 (01:22→01:28)
== END 2021-04-23 01:35 | disposition short-term general hospital (02) | DRG 871 ==
LOC: EDBD 19:32 → ER 19:36 → TELE 04-17 05:28 → TELE-WESTW 04-17 21:00
PROVIDERS: ADMIT Nurse Practitioner Family; ATTEND Internal Medicine
PROC: B245ZZ4 Ultrasonography of Left Heart, Transesophageal (ICD-10-PCS; principal; 2021-04-17)
PROC: 5A09357 Assistance with Respiratory Ventilation, Less than 24 Consecutive Hours, Continuous Positive Airway Pressure (ICD-10-PCS; 2021-04-17)
PROC: 5A09357 Assistance with Respiratory Ventilation, Less than 24 Consecutive Hours, Continuous Positive Airway Pressure (ICD-10-PCS; 2021-04-18)
DX: A41.81 Sepsis due to Enterococcus (principal); I50.43 Acute on chronic combined systolic (congestive) and diastolic (congestive) heart failure; J96.20 Acute and chronic respiratory failure, unspecified whether with hypoxia or hypercapnia; I48.20 Chronic atrial fibrillation, unspecified; D68.59 Other primary thrombophilia; J44.1 Chronic obstructive pulmonary disease with (acute) exacerbation; E78.5 Hyperlipidemia, unspecified; E11.65 Type 2 diabetes mellitus with hyperglycemia; E66.01 Morbid (severe) obesity due to excess calories; G47.33 Obstructive sleep apnea (adult) (pediatric); K21.9 Gastro-esophageal reflux disease without esophagitis; M19.90 Unspecified osteoarthritis, unspecified site; T38.0X5A Adverse effect of glucocorticoids and synthetic analogues, initial encounter; I11.0 Hypertensive heart disease with heart failure; I25.10 Atherosclerotic heart disease of native coronary artery without angina pectoris; I48.0 Paroxysmal atrial fibrillation; I35.2 Nonrheumatic aortic (valve) stenosis with insufficiency; I07.1 Rheumatic tricuspid insufficiency; I49.5 Sick sinus syndrome; Z20.822 Contact with and (suspected) exposure to COVID-19; Z79.4 Long term (current) use of insulin; Z80.0 Family history of malignant neoplasm of digestive organs; Z82.49 Family history of ischemic heart disease and other diseases of the circulatory system; Z83.3 Family history of diabetes mellitus; Z87.891 Personal history of nicotine dependence; Z95.0 Presence of cardiac pacemaker; Z95.5 Presence of coronary angioplasty implant and graft; Y92.89 Other specified places as the place of occurrence of the external cause; Z88.1 Allergy status to other antibiotic agents; Z88.0 Allergy status to penicillin
CPT/HCPCS: 36415; 71045; 71250; 76604; 80048; 80053; 80202; 81001; 82962; 83036; 83605; 83735; 83880; 84443; 84484; 85025; 87040; 87077; 87186; 87426; 93005; 93312; 94640; 94660; 96365; 96366; 96367; 96368; 96372; 96375; 97116; 97163; 97530; G0378; J0696; J1815; J2250; J3490